=== PATIENT | female | born 1965 | race Caucasian/White ===

== ENCOUNTER 2018-04-25 17:03 | Emergency (ER) | payer SELFPAY ==
--- NOTE | 2018-04-25 17:07 | EDM.PDOC ---
ED HPI GENERAL MEDICAL PROBLEM - General Chief Complaint: Respiratory Problem Stated Complaint: BREATHING PROBLEMS Time Seen by Provider: 04/25/18 17:05 Source of Information: Reports: Patient History Limitations: Reports: No Limitations - History of Present Illness INITIAL COMMENTS - FREE TEXT/NARRATIVE: HISTORY AND PHYSICAL: History of present illness: Patient is a 52-year-old female who presents to the emergency room with complaints of cough and shortness of breath over the 6-8 weeks. She states she does have a history of childhood asthma although still does use an inhaler as needed. She states she use this more frequently yesterday but has not had any improvement of her symptoms. She has been using [id number] cough and cold medications along with lozenges but has not had any relief. Patient is a daily smoker. She denies any fever, chills, chest pain, abdominal pain, nausea, vomiting, diarrhea or constipation. She has been eating and drinking appropriately. Review of systems: As per history of present illness and below otherwise all systems reviewed and negative. Past medical history: As per history of present illness and as reviewed below otherwise noncontributory. Surgical history: As per history of present illness and as reviewed below otherwise noncontributory. Social history: See social history for further information Family history: As per history of present illness and as reviewed below otherwise noncontributory. Physical exam: General: Well-developed and well-nourished 52-year-old female. Alert and oriented. Nontoxic appearing and in no acute distress. HEENT: Atraumatic, normocephalic, pupils equal and reactive bilaterally, negative for conjunctival pallor or scleral icterus, mucous membranes moist, TMs normal bilaterally, throat clear, neck supple, nontender, trachea midline. No drooling or trismus noted. No meningeal signs. No hot potato voice noted. Lungs: Clear to auscultation although slightly diminished on the right posterior side, breath sounds equal bilaterally, chest nontender. Dry nonproductive cough noted. Heart: S1S2, regular rate and rhythm without overt murmur Abdomen: Soft, nondistended, nontender. Negative for masses or hepatosplenomegaly. Negative for costovertebral tenderness. Pelvis: Stable nontender. Genitourinary: Deferred. Rectal: Deferred. Skin: Intact, warm, dry. No lesions or rashes noted. Extremities: Atraumatic, negative for cords or calf pain. Neurovascular unremarkable. Neuro: Awake, alert, oriented. Cranial nerves II through XII unremarkable. Cerebellum unremarkable. Motor and sensory unremarkable throughout. Exam nonfocal. Notes: Chest x-ray shows no acute findings. Due to the length of symptoms and her smoking use, I am going to treat her with a Z-Juanjo and Medrol Dosepak. Patient requests that her inhaler be refilled, we will do one refill on this. Encouraged her to establish care with a primary care provider for further evaluation and management of her respiratory symptoms. She voices understanding and is agreeable to plan of care. Denies any further questions or concerns at this time. Diagnostics: Chest x-ray Therapeutics: DuoNeb Prescription: Pro-air inhaler Zpack Medrol Dosepak Impression: Bronchitis Plan: 1. Please stop smoking. 2. Take your medications as directed. 3. Follow-up with your primary caregiver in the next 1-2 days. Return to the ED as needed and as discussed. Definitive disposition and diagnosis as appropriate pending reevaluation and review of above. chest upon breathing Pain Score (Numeric/FACES): 5 - Related Data Allergies Allergy/AdvReac Type Severity Reaction Status Date / Time hydromorphone [From Dilaudid] Allergy Cannot Verified 04/25/18 17:27 Remember Home Meds: Home Meds . [No Known Home Meds] 11/17/15 [History] Past Medical History Cardiovascular History: Reports: Other (See Below) Other Cardiovascular History: states she had a heart attack at age 32 Genitourinary History: Reports: None - Infectious Disease History Infectious Disease History: Reports: Chicken Pox, Mumps - Past Surgical History Female Surgical History: Reports: Other (See Below) Social & Family History - Family History Family Medical History: Noncontributory ED ROS GENERAL - Review of Systems Review Of Systems: ROS reveals no pertinent complaints other than HPI. ED EXAM, GENERAL - Physical Exam Exam: See Below Course - Vital Signs Last Recorded V/S: Last Vital Signs Temp 97.1 F 04/25/18 17:22 Pulse 89 04/25/18 17:22 Resp 18 04/25/18 17:22 BP 116/75 04/25/18 17:22 Pulse Ox 100 04/25/18 17:22 - Orders/Labs/Meds Orders: Active Orders 24 hr Category Date Time Status RT Aerosol Therapy [RC] ASDIRECTED Care 04/25/18 17:40 Active Chest 2V [CR] Stat Exams 04/25/18 17:40 Taken Meds: Medications Discontinued Medications Generic Name Dose Route Start Last Admin Trade Name Juan Luis PRN Reason Stop Dose Admin Albuterol/Ipratropium 3 ml 04/25/18 17:40 04/25/18 19:11 Duoneb 3.0-0.5 Mg/3 Ml NEB 04/25/18 17:41 3 ml ONETIME ONE Administration Departure - Departure Time of Disposition: 18:11 Disposition: Home, Self-Care 01 Clinical Impression: Bronchitis - Discharge Information Referrals: PCP,Unknown [Primary Care Provider] - Forms: ED Department Discharge Additional Instructions: The following information is given to patients seen in the emergency department who are being discharged to home. This information is to outline your options for follow-up care. We provide all patients seen in our emergency department with a follow-up referral. The need for follow-up, as well as the timing and circumstances, are variable depending upon the specifics of your emergency department visit. If you don't have a primary care physician on staff, we will provide you with a referral. We always advise you to contact your personal physician following an emergency department visit to inform them of the circumstance of the visit and for follow-up with them and/or the need for any referrals to a consulting specialist. The emergency department will also refer you to a specialist when appropriate. This referral assures that you have the opportunity for follow-up care with a specialist. All of these measure are taken in an effort to provide you with optimal care, which includes your follow-up. Under all circumstances we always encourage you to contact your private physician who remains a resource for coordinating your care. When calling for follow-up care, please make the office aware that this follow-up is from your recent emergency room visit. If for any reason you are refused follow-up, please contact the [facility] Emergency [facility] at and asked to speak to the emergency department charge nurse. [facility] [address] [place] [id number] [facility] [address] [place] [address] 1. Please stop smoking. 2. Take your medications as directed. 3. Follow-up with your primary caregiver in the next 1-2 days. Return to the ED as needed and as discussed. - My Orders Last 24 Hours: My Active Orders 04/25/18 17:40 RT Aerosol Therapy [RC] ASDIRECTED Chest 2V [CR] Stat - Assessment/Plan Last 24 Hours: My Active Orders 04/25/18 17:40 RT Aerosol Therapy [RC] ASDIRECTED Chest 2V [CR] Stat
[2018-04-25 17:34] VITALS: BP 116/75
[2018-04-25] MEDS ORDERED: Albuterol/Ipratropium 3.0-0.5 MG/3 ML Neb Soln NEB ONE (17:40)
--- NOTE | 2018-04-25 19:30 | CR ---
INDICATION: Cough for 2 months TECHNIQUE: Chest 2 views. COMPARISON: None. FINDINGS: Cardiovascular and mediastinum: Heart size and vasculature are normal in caliber and appearance. Mediastinum is within normal limits. Lungs and pleural spaces: Lungs are clear. No sign of infiltrate or mass. No sign of pleural effusion. No pneumothorax. Bones and soft tissues: No significant findings. IMPRESSION: No sign of acute disease. Dictated by Renate Weston MD @ Apr 25 2018 7:30PM Signed by Dr. Renate Weston @ Apr 25 2018 7:30PM
== END 2018-04-25 19:37 | disposition home or self-care (01) ==
LOC: MW.ED 17:03
DX: J40 Bronchitis, not specified as acute or chronic (principal); F17.210 Nicotine dependence, cigarettes, uncomplicated; Z88.8 Allergy status to other drugs, medicaments and biological substances
CPT/HCPCS: 71046; 71046-26; 94640; 99285-25; J7620-GY

== ENCOUNTER 2018-07-24 19:16 | Emergency (ER) | payer SELFPAY ==
[2018-07-24] MEDS ORDERED: Ketorolac 60 MG/2 ML SDV IM ONE (19:23)
[2018-07-24] MEDS ORDERED: Bacitracin Oint 1 GM U/D Packet TOP ONE (19:23)
--- NOTE | 2018-07-24 19:23 | EDM.PDOC ---
ED HPI GENERAL MEDICAL PROBLEM - General Chief Complaint: Skin Complaint Stated Complaint: PAIN WHERE THEY REMOVED MOLE Time Seen by Provider: 07/24/18 19:19 Source of Information: Reports: Patient History Limitations: Reports: No Limitations - History of Present Illness INITIAL COMMENTS - FREE TEXT/NARRATIVE: HISTORY AND PHYSICAL: History of present illness: Patient is a 52-year-old female who presents to the emergency room today with complaints of pain at a mall extraction site. She states she went to the walk- in clinic this afternoon to have a mole removed as it was rubbing along her bra line and had been bothersome. She also has a cellulitis to the right forearm. Patient states she is not here for the cellulitis, as she is already on antibiotics for this. After her appointment, she picked up her prescription for Bactrim DS. States she started to have pain at the mole removal site (right lateral chest wall). She returned to the walk-in clinic and he further prescribed some Slinger 5/325. She states she has taken 2 tablets of this and has had no relief. States, "I don't know if he cut a nerve or something". Patient denies any fever, chills, headache, change in vision, syncope or near syncope. Denies any chest pain, back pain, shortness of breath or cough. Denies any abdominal pain, nausea, vomiting, diarrhea, constipation or dysuria. Has not noted any blood in urine or stool. Patient has been eating and drinking appropriately. Review of systems: As per history of present illness and below otherwise all systems reviewed and negative. Past medical history: As per history of present illness and as reviewed below otherwise noncontributory. Surgical history: As per history of present illness and as reviewed below otherwise noncontributory. Social history: See social history for further information Family history: As per history of present illness and as reviewed below otherwise noncontributory. Physical exam: General: Well-developed and well-nourished 52-year-old female. Alert and oriented. Nontoxic appearing and in no acute distress. HEENT: Atraumatic, normocephalic, pupils equal and reactive bilaterally, negative for conjunctival pallor or scleral icterus, mucous membranes moist, trachea midline. No drooling or trismus noted. No meningeal signs. No hot potato voice noted. Lungs: Clear to auscultation, breath sounds equal bilaterally, chest nontender. Heart: S1S2, regular rate and rhythm without overt murmur Abdomen: Soft, nondistended, nontender. Skin: Patient does have a small circular area to the right lateral chest wall which she had a mole removed. Patient previously had a nonstick dressing over the site. No surrounding erythema, site is superficial. 3 mm in diameter. Patient reports is painful to palpation. Secondarily she has a localized cellulitis to the right forearm. This is non-circumferential. Nonfluctuant and nonindurated. This is approximately the size of the palmar surface. Extremities: Atraumatic, moves all extremities per self without difficulty or deficits, negative for cords or calf pain. Neurovascular unremarkable. Neuro: Awake, alert, oriented. Cranial nerves II through XII unremarkable. Cerebellum unremarkable. Motor and sensory unremarkable throughout. Exam nonfocal. Notes: Patient's vital signs are stable. Her lung sounds are clear in all lung moreno. No evidence of a shingles rash. The mole removal site appears to be within normal limits. She states it is tender with palpation. She already has a prescription for Slinger which she took one tablet upon getting the prescription filled and then another tablet one hour later. Chest x-ray shows no acute findings. Bacitracin dressing applied over the mole extraction site. Did talk with the patient about her previous cellulitis diagnoses and what to continue to monitor for as she starts oral antibiotic therapy. Encouraged her to take 2 tablets of her Slinger every 4-6 hours as needed. Supportive care measures were reviewed and discussed. Voices understanding and is agreeable to plan of care. Denies any further questions or concerns at this time. Diagnostics: CXR Therapeutics: Bacitracin Non-stick dressing Prescription: None Impression: Chest wall pain Cellulitis Plan: 1. Keep the mole removal site clean and dry. Continue to monitor for signs of improvement. 2. Start your antibiotics for the forearm cellulitis as directed. Keep that clean and dry. Continue to monitor for signs of improvement. If signs worsen or new symptoms develop; return to your primary care provider or the ED. 3. Slinger as prescribed by your primary care provider. You may take 1-2 tabs as needed and as directed. Do not drive while taking this medication as it may cause drowsiness. 4. Follow-up with your primary care provider is as discussed. Return to the ED as needed and as discussed. Definitive disposition and diagnosis as appropriate pending reevaluation and review of above. 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 ED EXAM, SKIN/RASH Exam: See Below (See dictation) Course - Vital Signs Last Recorded V/S: Last Vital Signs Temp 97.3 F 07/24/18 19:21 Pulse 92 07/24/18 19:21 Resp 22 H 07/24/18 19:21 BP 149/102 H 07/24/18 19:21 Pulse Ox 98 07/24/18 19:21 - Orders/Labs/Meds Orders: Active Orders 24 hr Category Date Time Status Chest 2V [CR] Stat Exams 07/24/18 19:23 Taken Meds: Medications Discontinued Medications Generic Name Dose Route Start Last Admin Trade Name Freq PRN Reason Stop Dose Admin Bacitracin 1 dose 07/24/18 19:23 07/24/18 19:29 Bacitracin Oint 1 Gm TOP 07/24/18 19:24 1 dose ONETIME ONE Administration Ketorolac Tromethamine 60 mg 07/24/18 19:23 07/24/18 19:29 Toradol IM 07/24/18 19:24 60 mg ONETIME ONE Administration Departure - Departure Time of Disposition: 19:32 Disposition: Home, Self-Care 01 Clinical Impression: Chest wall pain Cellulitis Qualifiers: Site of cellulitis: extremity Site of cellulitis of extremity: upper extremity Laterality: right Qualified Code(s): L03.113 - Cellulitis of right upper limb - Discharge Information Forms: ED Department Discharge - My Orders Last 24 Hours: My Active Orders 07/24/18 19:23 Chest 2V [CR] Stat - Assessment/Plan Last 24 Hours: My Active Orders 07/24/18 19:23 Chest 2V [CR] Stat
[2018-07-24 19:25] VITALS: BP 149/102
--- NOTE | 2018-07-24 20:02 | CR ---
INDICATION: S/p small bobby section from the back today. Now with shortness of breath. COMPARISON: 04/25/2018 FINDINGS: PA and lateral views of the chest were obtained. The lungs remain clear. No focal or diffuse infiltrates are present. There is no sign of pneumothorax. The heart remains normal in size. The mediastinum is normal in appearance. Again seen is a minimal pectus excavatum deformity. The osseous structures are otherwise normal in appearance for the patient`s age. IMPRESSION: Normal chest two views. Dictated by Magdaleno Andrew MD @ Jul 24 2018 7:59PM Signed by Dr. Magdaleno Andrew @ Jul 24 2018 8:01PM
== END 2018-07-24 20:23 | disposition home or self-care (01) ==
LOC: MW.ED 19:16
DX: L03.113 Cellulitis of right upper limb (principal); R07.89 Other chest pain; Z88.6 Allergy status to analgesic agent; Z79.899 Other long term (current) drug therapy; Z98.890 Other specified postprocedural states
CPT/HCPCS: 71046; 96372; 99283; J1885

== ENCOUNTER 2018-07-26 00:02 | Observation (INO) | payer SELFPAY ==
[2018-07-26] MEDS ORDERED: Morphine 2 MG/ML Syringe IVPUSH ONE (00:26)
[2018-07-26] MEDS ORDERED: Ondansetron 4 MG/2 ML SDV IVPUSH ONE (00:26)
[2018-07-26] MEDS ORDERED: Sodium Chloride 0.9% 1,000 ML IV ONE (00:26)
[2018-07-26] MEDS ORDERED: Ketorolac 30 MG/ML SDV IVPUSH ONE (00:45)
[2018-07-26 01:09] LABS: CHLORIDE,CL 104 mmol/L (98-107); SODIUM,NA 141 mmol/L (136-145)
--- NOTE | 2018-07-26 01:19 | US ---
INDICATION: Right back abdominal pain TECHNIQUE: Ultrasound abdomen limited. Sonographic images of the right upper quadrant were obtained using flynn-scale and color Doppler images. COMPARISON: None FINDINGS: Liver: The liver parenchyma is normal in echotexture. Gallbladder: The neck of the gallbladder is not well demonstrated. The gallbladder wall is normal in appearance. No pericholecystic fluid is present. No sonographic Lowell sign is present. Common bile duct: 3 mm. No intrahepatic biliary ductal dilatation seen. Pancreas: The visualized portions of the pancreatic head and body are normal in appearance. Right Kidney: 9.9 cm. No hydronephrosis or ureterectasis is seen. Vascular: Proximal abdominal aorta and IVC are normal in caliber. The visualized portal vein is patent with normal anterograde flow. IMPRESSION: 1. The right upper quadrant is unremarkable in appearance. Dictated by Ranjan Batista MD @ 07/26/2018 1:18:13 AM Dictated by: Ranjan Batista MD @ 07/26/2018 01:18:19 (Electronically Signed)
[2018-07-26] MEDS ORDERED: Morphine 4 MG/ML Syringe IVPUSH ONE (01:55)
--- NOTE | 2018-07-26 02:16 | EDM.PDOC ---
ED HPI GENERAL MEDICAL PROBLEM - General Chief Complaint: General Stated Complaint: PT IS IN PAIN Time Seen by Provider: 07/26/18 02:16 Source of Information: Reports: Patient - History of Present Illness INITIAL COMMENTS - FREE TEXT/NARRATIVE: HISTORY AND PHYSICAL: History of present illness: [Patient presents with complaint of pain 10 out of 10 She attributes pain to a lesion removal on her right posterior chest wall/ [facility] she describes what sounds to be a hemangioma that was removed and then cautery performed, she felt well after the lesion was removed however went to the grocery store about 30 minutes later and developed significant pain, she returned fair light and was placed on hydrocodone and Bactrim. She presents tonight with the 10 out of 10 pain she is tender with light touch around the lesion however she is also tender on paraspinous muscles of lumbar spine and tender in the right upper quadrant of her abdomen on deep palpation there is no guarding or rebound no lower quadrant tenderness no fever nausea vomiting chills sweats She states she has had similar symptoms off and on over the last couple of years but pain would resolve within the same day Patient also is recently been seen for a puncture wound on her right forearm which has developed a cellulitis, the Bactrim was originally prescribed for the cellulitis ] Review of systems: As per history of present illness and below otherwise all systems reviewed and negative. Past medical history: As per history of present illness and as reviewed below otherwise noncontributory. Surgical history: As per history of present illness and as reviewed below otherwise noncontributory. Social history: No reported history of drug or alcohol abuse. Family history: As per history of present illness and as reviewed below otherwise noncontributory. Physical exam: HEENT: Atraumatic, normocephalic, pupils reactive, negative for conjunctival pallor or scleral icterus, mucous membranes moist, throat clear, neck supple, nontender, trachea midline. Lungs: Clear to auscultation, breath sounds equal bilaterally, chest nontender. Heart: S1S2, regular, negative for clicks, rubs, or JVD. Abdomen: Soft, nondistended, tender in the right upper quadrant or guarding or rebound. Negative for masses or hepatosplenomegaly. Negative for costovertebral tenderness. Pelvis: Stable nontender. Genitourinary: Deferred. Rectal: Deferred. Extremities: Atraumatic, negative for cords or calf pain. Neurovascular unremarkable. Neuro: Awake, alert, oriented. Cranial nerves II through XII unremarkable. Cerebellum unremarkable. Motor and sensory unremarkable throughout. Exam nonfocal. Skin cellulitis right forearm 2" x 3" fairly well demarcated lesion, lesion consistent with mole removal/punch biopsy right axilla/posterior chest wall with surrounding area tenderness no redness or warmth lesion is dry cauterized no drainage or exudates for culture Diagnostics: [CBC CMP UA troponin lipase hCG 1 pelvis with contrast Right upper quadrant ultrasound ] Therapeutics: [ normal saline ms 2 mg IV, followed by 4 mg IV Toradol 30 mg IV Zofran Bactroban ] Impression: [ intractable pain etiology uncertain Suspicious for biliary colic , may consider HIDA scan Cellulitis right forearm Definitive disposition and diagnosis as appropriate pending reevaluation and review of above. Right Upper Back Pain Score (Numeric/FACES): 10 - Related Data Allergies Allergy/AdvReac Type Severity Reaction Status Date / Time hydromorphone [From Dilaudid] Allergy Change Verified 07/26/18 00:18 Mental Status Home Meds: Home Meds Sulfamethoxazole/Trimethoprim [Bactrim Ds Tablet] 1 each PO BID 07/24/18 [ History] Diclofenac Sodium [Voltaren] 1 tab PO TID 07/26/18 [History] Past Medical History HEENT History: Reports: None Cardiovascular History: Reports: Other (See Below) Other Cardiovascular History: states she had a heart attack at age 32 Respiratory History: Reports: None Gastrointestinal History: Reports: None Genitourinary History: Reports: None 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: Musculoskeletal History: Reports: None Neurological History: Reports: None Psychiatric History: Reports: Depression Endocrine/Metabolic History: Reports: None Hematologic History: Reports: None Immunologic History: Reports: None Oncologic (Cancer) History: Reports: None Dermatologic History: Reports: Cellulitis - Infectious Disease History Infectious Disease History: Reports: None - Past Surgical History Head Surgeries/Procedures: Reports: None Female Surgical History: Reports: Other (See Below) Social & Family History - Family History Family Medical History: Noncontributory - Tobacco Use Smoking Status *Q: Current Every Day Smoker Years of Tobacco use: 25 Packs/Tins Daily: 0.5 - Caffeine Use Caffeine Use: Reports: Coffee - Recreational Drug Use Recreational Drug Use: No ED ROS GENERAL - Review of Systems Review Of Systems: See Below ED EXAM, GENERAL - Physical Exam Exam: See Below Course - Vital Signs Last Recorded V/S: Last Vital Signs Temp 96.9 F 07/26/18 00:11 Pulse 74 07/26/18 02:32 Resp 16 07/26/18 02:32 BP 132/70 07/26/18 02:32 Pulse Ox 95 07/26/18 02:32 - Orders/Labs/Meds Orders: Active Orders 24 hr Category Date Time Status CULTURE BLOOD [BC] Stat Lab 07/26/18 00:35 Received CULTURE BLOOD [BC] Stat Lab 07/26/18 01:20 Received Mupirocin Oint [Bactroban Oint] Med 07/26/18 03:00 Once 1 gm TOP ONETIME ONE Blood Culture x2 Reflex Set [OM.PC] Stat Oth 07/26/18 00:26 Ordered Medication Orders Mupirocin (Bactroban Oint) 1 gm TOP ONETIME ONE Stop: 07/26/18 03:01 Labs: Laboratory Tests 07/26/18 07/26/18 07/26/18 Range/Units 00:35 00:35 01:30 WBC 9.72 (4.0-11.0) K/uL RBC 4.07 L (4.30-5.90) M/uL Hgb 13.3 (12.0-16.0) g/dL Hct 39.4 (36.0-46.0) % MCV 96.8 (80.0-98.0) fL MCH 32.7 H (27.0-32.0) pg MCHC 33.8 (31.0-37.0) g/dL RDW Std Deviation 42.9 (28.0-62.0) fl RDW Coeff of Lorie 13 (11.0-15.0) % Plt Count 259 (150-400) K/uL MPV 10.00 (7.40-12.00) fL Neut % (Auto) 57.9 (48.0-80.0) % Lymph % (Auto) 29.5 (16.0-40.0) % [place] % (Auto) 7.5 (0.0-15.0) % Eos % (Auto) 4.9 (0.0-7.0) % Baso % (Auto) 0.2 (0.0-1.5) % Neut # (Auto) 5.6 (1.4-5.7) K/uL Lymph # (Auto) 2.9 H (0.6-2.4) K/uL [place] # (Auto) 0.7 (0.0-0.8) K/uL Eos # (Auto) 0.5 (0.0-0.7) K/uL Baso # (Auto) 0.0 (0.0-0.1) K/uL Sodium 141 (136-145) mmol/L Potassium 4.0 (3.5-5.1) mmol/L Chloride 104 (98-107) mmol/L Carbon Dioxide 27.0 (21.0-32.0) mmol/L BUN 11 (7.0-18.0) mg/dL Creatinine 0.7 (0.6-1.0) mg/dL Est Cr Clr Drug Dosing 69.06 mL/min Estimated GFR (MDRD) > 60.0 ml/min Glucose 103 (74-106) mg/dL Calcium 8.7 (8.5-10.1) mg/dL Total Bilirubin 0.3 (0.2-1.0) mg/dL AST 16 (15-37) IU/L ALT 21 (14-63) IU/L Alkaline Phosphatase 64 (46-116) U/L Troponin I < 0.050 (0.000-0.056) ng/mL Total Protein 6.8 (6.4-8.2) g/dL Albumin 3.8 (3.4-5.0) g/dL Globulin 3.0 (2.6-4.0) g/dL Albumin/Globulin Ratio 1.3 (0.9-1.6) Lipase 238 (73-393) U/L Urine Color YELLOW Urine Appearance CLEAR Urine pH 5.5 (5.0-8.0) Ur Specific [place] <= 1.005 (1.001-1.035) Urine Protein NEGATIVE (NEGATIVE) mg/dL Urine Glucose (UA) NEGATIVE (NEGATIVE) mg/dL Urine Ketones NEGATIVE (NEGATIVE) mg/dL Urine Occult Blood NEGATIVE (NEGATIVE) Urine Nitrite NEGATIVE (NEGATIVE) Urine Bilirubin NEGATIVE (NEGATIVE) Urine Urobilinogen 0.2 (<2.0) EU/dL Ur Leukocyte Esterase NEGATIVE (NEGATIVE) Meds: Medications Generic Name Dose Route Start Last Admin Trade Name Juan Lusi PRN Reason Stop Dose Admin Mupirocin 1 gm 07/26/18 03:00 Bactroban Oint TOP 07/26/18 03:01 ONETIME ONE Discontinued Medications Generic Name Dose Route Start Last Admin Trade Name Juan Luis PRN Reason Stop Dose Admin Sodium Chloride 1,000 mls @ 999 mls/hr 07/26/18 00:26 07/26/18 00:40 Normal Saline IV 07/26/18 01:26 999 mls/hr STAT ONE Administration Iopamidol 90 ml 07/26/18 02:27 07/26/18 02:28 Isovue Multipack-370 (76%) IVPUSH 07/26/18 02:28 90 ml ONETIME STA Administration Ketorolac Tromethamine 30 mg 07/26/18 00:45 07/26/18 01:12 Toradol IVPUSH 07/26/18 00:46 30 mg ONETIME ONE Administration Morphine Sulfate 2 mg 07/26/18 00:26 07/26/18 00:41 Morphine IVPUSH 07/26/18 00:27 2 mg ONETIME ONE Administration Morphine Sulfate 4 mg 07/26/18 01:55 07/26/18 02:00 Morphine IVPUSH 07/26/18 01:56 4 mg ONETIME ONE Administration Ondansetron HCl 8 mg 07/26/18 00:26 07/26/18 00:40 Zofran IVPUSH 07/26/18 00:27 8 mg ONETIME ONE Administration Departure - Departure Time of Disposition: 03:08 Disposition: Refer to Observation Condition: Fair Clinical Impression: Intractable pain Cellulitis Qualifiers: Site of cellulitis: extremity Site of cellulitis of extremity: upper extremity Laterality: right Qualified Code(s): L03.113 - Cellulitis of right upper limb - Discharge Information Referrals: PCP,None [Primary Care Provider] - Forms: ED Department Discharge - My Orders Last 24 Hours: My Active Orders 07/26/18 00:26 Blood Culture x2 Reflex Set [OM.PC] Stat 07/26/18 00:35 CULTURE BLOOD [BC] Stat 07/26/18 01:20 CULTURE BLOOD [BC] Stat 07/26/18 03:00 Mupirocin Oint [Bactroban Oint] 1 gm TOP ONETIME ONE - Assessment/Plan Last 24 Hours: My Active Orders 07/26/18 00:26 Blood Culture x2 Reflex Set [OM.PC] Stat 07/26/18 00:35 CULTURE BLOOD [BC] Stat 07/26/18 01:20 CULTURE BLOOD [BC] Stat 07/26/18 03:00 Mupirocin Oint [Bactroban Oint] 1 gm TOP ONETIME ONE
[2018-07-26] MEDS ORDERED: Iopamidol 755 MG/ML 500 ML Multipack Bottle IVPUSH STA (02:27)
--- NOTE | 2018-07-26 02:37 | CT ---
INDICATION: Abdominal pain, extreme back pain, mole removed from back recently TECHNIQUE: CT Abdomen and pelvis with i.v. contrast. Coronal and sagittal reformats were obtained. CONTRAST: 100 mL Isovue 370 COMPARISON: Ultrasound today FINDINGS: Mild image quality degradation noted due to beam hardening artifacts from scanning with the arms by the patient`s sides. Lower chest: Mild left basilar atelectasis is noted. Liver: Unremarkable. Spleen: Unremarkable. Pancreas: Unremarkable. Gallbladder: Unremarkable. Kidney: Unremarkable. No kidney or ureteral stones or obstruction seen. Adrenal: Unremarkable. Bowel: Unremarkable. The appendix is not visualized and likely surgically absent. Vascular: Unremarkable. Lymph: Unremarkable. Peritoneum: Unremarkable. No pneumoperitoneum is seen. No significant ascites is noted. Pelvis: The patient is status post prior hysterectomy. Soft tissue: Unremarkable. Bone: Small calcified and chronic appearing broad-based disc protrusion is seen at L5-S1. IMPRESSION: 1. Unremarkable with no CT correlate for the patient`s symptoms seen. Dictated by Ranjan Batista MD @ 07/26/2018 2:36:03 AM Please note that all CT scans at this facility use dose modulation, iterative reconstruction, and/or weight-based dosing when appropriate to reduce radiation dose to as low as reasonably achievable. Dictated by: Ranjan Btaista MD @ 07/26/2018 02:36:08 (Electronically Signed)
[2018-07-26] MEDS ORDERED: Mupirocin Oint 22 GM Tube TOP ONE (03:00)
[2018-07-26] MEDS ORDERED: Sodium Chloride 0.9% 1,000 ML IV SCH (03:15)
[2018-07-26] MEDS ORDERED: diphenhydrAMINE 50 MG Cap PO ONE (04:20)
[2018-07-26] MEDS ORDERED: Acetaminophen 325 MG Tab PO PRN (04:21)
[2018-07-26] MEDS ORDERED: oxyCODONE 5 MG Tab PO PRN (04:21)
[2018-07-26] MEDS ORDERED: Morphine 2 MG/ML Syringe IVPUSH PRN (04:22)
[2018-07-26] MEDS: Nicotine 14 MG/24 Hr Patch TRDERM SCH ×2 (04:31→09:26)
[2018-07-26] MEDS ORDERED: Ketorolac 30 MG/ML SDV IV PRN (07:16)
[2018-07-26] MEDS ORDERED: Temazepam 15 MG Cap PO PRN (07:16)
[2018-07-26] MEDS ORDERED: Enoxaparin 40 MG/0.4 ML Syringe SUBCUT SCH (07:30)
[2018-07-26] MEDS ORDERED: cefTRIAXone 1 GM in Premix Bag 1 BAG IV SCH (08:45)
[2018-07-26] MEDS ORDERED: TRIMETHOPRIM PO SCH (09:00)
[2018-07-26] MEDS ORDERED: Diphtheria,Pertussis(Acell),Tetanus Vaccine 0.5 ML Syringe IM ONE (09:00)
[2018-07-26] MEDS ORDERED: SULFAMETHOXAZOLE PO SCH (09:00)
--- NOTE | 2018-07-26 10:31 | PCM.HP ---
<Addy Hawkins - Last Filed: 07/26/18 10:24> H&P History of Present Illness - General Date of Service: 07/26/18 Admit Problem/Dx: Admission Diagnosis/Problem Admission Diagnosis/Problem Abdominal pain History Limitations: Reports: No Limitations - History of Present Illness Initial Comments - Free Text/Narative: 52F previously healthy presented to the ER with a chief complaint of point tenderness on her right side of back in thoracic region with abdominal discomfort also. She states that she had a hemangioma removed at outside clinic earlier in the day prior to presentation and about 1hr later started to feel significant pain in that region. ER physician was considered for an alternative pathology for her pain complaints. However, CT abd/pelvis and US of the RUQ are unremarkable. Also, patient states that about 1 month ago she scraped her R forearm on a heavy tire in her backyard and has been dealing with a rash/ infection locally on her forearm. She says its been draining a clear fluid. No nausea or vomiting, no fever. Tetanus is not UTD. Right Upper Back Pain Score (Numeric/FACES): 10 - Related Data Allergies/Adverse Reactions: Allergies Allergy/AdvReac Type Severity Reaction Status Date / Time hydromorphone [From Dilaudid] Allergy Change Verified 07/26/18 00:18 Mental Status Home Medications: Home Meds Sulfamethoxazole/Trimethoprim [Bactrim Ds Tablet] 1 each PO BID 07/24/18 [ History] Cephalexin [Keflex] 500 mg PO QID 5 Days #20 capsule 07/26/18 [Rx] Diclofenac Sodium [Voltaren] 1 tab PO TID 07/26/18 [History] Doxycycline [Vibramycin] 100 mg PO Q12H 7 Days #14 tab 07/26/18 [Rx] Morphine 15 mg PO Q4H PRN #12 tab 07/26/18 [Rx] Past Medical History HEENT History: Reports: None Cardiovascular History: Reports: Other (See Below) Other Cardiovascular History: states she had a heart attack at age 32 Respiratory History: Reports: None Gastrointestinal History: Reports: None Genitourinary History: Reports: None [employer] History: Reports: Musculoskeletal History: Reports: None Neurological History: Reports: None Psychiatric History: Reports: Depression Endocrine/Metabolic History: Reports: None Hematologic History: Reports: None Immunologic History: Reports: None Oncologic (Cancer) History: Reports: None Dermatologic History: Reports: Cellulitis - Infectious Disease History Infectious Disease History: Reports: None - Past Surgical History Head Surgeries/Procedures: Reports: None Social & Family History - Family History Family Medical History: Noncontributory - Tobacco Use Smoking Status *Q: Current Every Day Smoker Years of Tobacco use: 25 Packs/Tins Daily: 0.5 Used Tobacco, but Quit: No Second Hand Smoke Exposure: No - Caffeine Use Caffeine Use: Reports: Coffee - Recreational Drug Use Recreational Drug Use: No H&P Review of Systems - Review of Systems: Review Of Systems: See Below General: Reports: No Symptoms HEENT: Reports: No Symptoms Pulmonary: Reports: No Symptoms Cardiovascular: Reports: No Symptoms Gastrointestinal: Reports: No Symptoms Skin: Reports: Other (see hpi) Exam - Exam Exam: See Below - Vital Signs Vital Signs: Last Vital Signs Temp 36 C 07/26/18 07:10 Pulse 69 07/26/18 07:10 Resp 16 07/26/18 07:10 BP 124/74 07/26/18 07:10 Pulse Ox 97 07/26/18 07:16 Weight: 47.083 kg - Exam General: Alert, Oriented, 4 HEENT: PERRLA, Hearing Intact, Mucosa Moist & [place], Nares Patent, Normal Nasal Septum, Posterior Pharynx Clear, Conjunctiva Clear, EOMI, EACs Clear, TMs Clear Neck: Supple, Trachea Midline, 2 Lungs: Clear to Auscultation, Normal Respiratory Effort Cardiovascular: Regular Rate, Regular Rhythm GI/Abdominal Exam: Other (RUQ tenderness to palpation, no rebound) Back Exam: Normal Inspection, Full Range of Motion, Other (R thoracic region point tenderness over site of hemangioma removal. Lesion appears clean without drainage/induration/warmth/erythema) Extremities: Normal Inspection, Normal Range of Motion, Non-Tender, No Pedal Edema, Normal Capillary Refill - Patient Data Lab Results Last 24 hrs: Laboratory Results - last 24 hr 07/26/18 07/26/18 07/26/18 Range/Units 00:35 00:35 01:30 WBC 9.72 (4.0-11.0) K/uL RBC 4.07 L (4.30-5.90) M/uL Hgb 13.3 (12.0-16.0) g/dL Hct 39.4 (36.0-46.0) % MCV 96.8 (80.0-98.0) fL MCH 32.7 H (27.0-32.0) pg MCHC 33.8 (31.0-37.0) g/dL RDW Std Deviation 42.9 (28.0-62.0) fl RDW Coeff of Lorie 13 (11.0-15.0) % Plt Count 259 (150-400) K/uL MPV 10.00 (7.40-12.00) fL Neut % (Auto) 57.9 (48.0-80.0) % Lymph % (Auto) 29.5 (16.0-40.0) % Stewart % (Auto) 7.5 (0.0-15.0) % Eos % (Auto) 4.9 (0.0-7.0) % Baso % (Auto) 0.2 (0.0-1.5) % Neut # (Auto) 5.6 (1.4-5.7) K/uL Lymph # (Auto) 2.9 H (0.6-2.4) K/uL Stewart # (Auto) 0.7 (0.0-0.8) K/uL Eos # (Auto) 0.5 (0.0-0.7) K/uL Baso # (Auto) 0.0 (0.0-0.1) K/uL Sodium 141 (136-145) mmol/L Potassium 4.0 (3.5-5.1) mmol/L Chloride 104 (98-107) mmol/L Carbon Dioxide 27.0 (21.0-32.0) mmol/L BUN 11 (7.0-18.0) mg/dL Creatinine 0.7 (0.6-1.0) mg/dL Est Cr Clr Drug Dosing 69.06 mL/min Estimated GFR (MDRD) > 60.0 ml/min Glucose 103 (74-106) mg/dL Calcium 8.7 (8.5-10.1) mg/dL Total Bilirubin 0.3 (0.2-1.0) mg/dL AST 16 (15-37) IU/L ALT 21 (14-63) IU/L Alkaline Phosphatase 64 (46-116) U/L Troponin I < 0.050 (0.000-0.056) ng/mL Total Protein 6.8 (6.4-8.2) g/dL Albumin 3.8 (3.4-5.0) g/dL Globulin 3.0 (2.6-4.0) g/dL Albumin/Globulin Ratio 1.3 (0.9-1.6) Lipase 238 (73-393) U/L Urine Color YELLOW Urine Appearance CLEAR Urine pH 5.5 (5.0-8.0) Ur Specific Dexter <= 1.005 (1.001-1.035) Urine Protein NEGATIVE (NEGATIVE) mg/dL Urine Glucose (UA) NEGATIVE (NEGATIVE) mg/dL Urine Ketones NEGATIVE (NEGATIVE) mg/dL Urine Occult Blood NEGATIVE (NEGATIVE) Urine Nitrite NEGATIVE (NEGATIVE) Urine Bilirubin NEGATIVE (NEGATIVE) Urine Urobilinogen 0.2 (<2.0) EU/dL Ur Leukocyte Esterase NEGATIVE (NEGATIVE) Result Diagrams: 07/26/18 00:35 07/26/18 00:35 Problem List Initiated/Reviewed/Updated: Yes Orders Last 24hrs: Active Orders 24 hr Category Date Time Status Admission Status [Patient Status] [ADT] Stat ADT 07/26/18 03:13 Active Oxygen Therapy [RC] PRN Care 07/26/18 07:16 Active Ready for Discharge [RC] PER UNIT ROUTINE Care 07/26/18 08:59 Active Up ad Magalys [RC] ASDIRECTED Care 07/26/18 07:16 Active VTE/DVT Education [RC] PER UNIT ROUTINE Care 07/26/18 07:16 Active Vaccines to be Administered [RC] PER UNIT ROUTINE Care 07/26/18 08:32 Active Vital Signs [RC] Q4H Care 07/26/18 07:16 Active Regular Diet [DIET] Diet 07/26/18 Breakfast Active HIDA with EF [Cholescintigraphy w Pharm Int] [NM] Stat Exams 07/26/18 08:42 Ordered CULTURE BLOOD [BC] Stat Lab 07/26/18 00:35 Received CULTURE BLOOD [BC] Stat Lab 07/26/18 01:20 Received Acetaminophen [Tylenol] Med 07/26/18 04:21 Active 650 mg PO Q4H PRN Enoxaparin [Lovenox] Med 07/26/18 07:30 Active 40 mg SUBCUT Q24H Ketorolac [Toradol] Med 07/26/18 07:16 Active 30 mg IV Q6H PRN Morphine Med 07/26/18 04:22 Active 2 mg IVPUSH Q4H PRN Nicotine [Habitrol] Med 07/26/18 04:30 Active 14 mg TRDERM DAILY Patient's Own Medication [Ptom] Med 07/26/18 09:00 Active 1 each PO BID Temazepam [Restoril] Med 07/26/18 07:16 Active 15 mg PO BEDTIME PRN cefTRIAXone [Rocephin in Dextrose,Iso-Osm 1 GM/50 ML] 1 Med 07/26/18 08:45 Active gm Premix Bag 1 bag IV Q24H oxyCODONE Med 07/26/18 04:21 Active 5 mg PO Q4H PRN Blood Culture x2 Reflex Set [OM.PC] Stat Oth 07/26/18 00:26 Ordered Resuscitation Status Routine Resus Stat 07/26/18 07:16 Ordered Medication Orders Acetaminophen (Tylenol) 650 mg PO Q4H PRN PRN Reason: Pain Enoxaparin Sodium (Lovenox) 40 mg SUBCUT Q24H [facility] Last Admin: 07/26/18 08:05 Dose: 40 mg Ceftriaxone Sodium/Dextrose 1 (gm/ Premix) 50 mls @ 100 mls/hr IV Q24H [facility] Last Admin: 07/26/18 09:10 Dose: 100 mls/hr Ketorolac Tromethamine (Toradol) 30 mg IV Q6H PRN PRN Reason: Pain (moderate 4-6) Last Admin: 07/26/18 09:21 Dose: 30 mg Morphine Sulfate (Morphine) 2 mg IVPUSH Q4H PRN PRN Reason: Pain Last Admin: 07/26/18 10:21 Dose: 2 mg Nicotine (Habitrol) 14 mg TRDERM DAILY [facility] Last Admin: 07/26/18 09:26 Dose: 14 mg Admin: 07/26/18 04:31 Dose: 14 mg Oxycodone HCl (Oxycodone) 5 mg PO Q4H PRN PRN Reason: Pain Last Admin: 07/26/18 09:03 Dose: 5 mg Sulfamethoxazole/ (Trimethoprim 800/160) 1 each PO BID [facility] Last Admin: 07/26/18 09:25 Dose: 1 each Temazepam (Restoril) 15 mg PO BEDTIME PRN PRN Reason: Sleep Assessment/Plan Comment:: Assessment: #1. R arm cellulitis #2. RUQ pain #3. History of recent hemangioma removal Plan: #1. Admit for observation #2. I spoke to general surgery who recommended that the patient get a HIDA scan for further evaluation of the galbladder for possible biliary dyskinesia. This will be done as an outpatient #3. Pain medications as ordered #4. IV rocephin for cellulitis #5. Tdap Discharge summary: Patient was discharged the same day with PO Keflex, doxycycline, PRN morphine. She is scheduled for a HIDA scan on Sunday07/29/2018. She was advised to be NPO 12 hrs prior to procedure and no pain medications 24hrs prior to procedure. Return precautions discussed. She will need a close follow up on her HIDA scan results and monitoring of her cellulitis. <Jordin Feliciano - Last Filed: 07/26/18 12:35> H&P History of Present Illness - General Admit Problem/Dx: Admission Diagnosis/Problem Admission Diagnosis/Problem Abdominal pain I have seen and examined to patient independently of front office medical assistant, Addy Hawkins MD. I have discussed the case for care of this patient with him. I have reviewed and approve of the plan of care as outlined by front office medical assistant. Exam - Vital Signs Vital Signs: Last Vital Signs Temp 36 C 07/26/18 07:10 Pulse 69 07/26/18 07:10 Resp 16 07/26/18 07:10 BP 124/74 07/26/18 07:10 Pulse Ox 97 07/26/18 07:16 - Patient Data Lab Results Last 24 hrs: Laboratory Results - last 24 hr 07/26/18 07/26/18 07/26/18 Range/Units 00:35 00:35 01:30 WBC 9.72 (4.0-11.0) K/uL RBC 4.07 L (4.30-5.90) M/uL Hgb 13.3 (12.0-16.0) g/dL Hct 39.4 (36.0-46.0) % MCV 96.8 (80.0-98.0) fL MCH 32.7 H (27.0-32.0) pg MCHC 33.8 (31.0-37.0) g/dL RDW Std Deviation 42.9 (28.0-62.0) fl RDW Coeff of Lorie 13 (11.0-15.0) % Plt Count 259 (150-400) K/uL MPV 10.00 (7.40-12.00) fL Neut % (Auto) 57.9 (48.0-80.0) % Lymph % (Auto) 29.5 (16.0-40.0) % Stewart % (Auto) 7.5 (0.0-15.0) % Eos % (Auto) 4.9 (0.0-7.0) % Baso % (Auto) 0.2 (0.0-1.5) % Neut # (Auto) 5.6 (1.4-5.7) K/uL Lymph # (Auto) 2.9 H (0.6-2.4) K/uL Stewart # (Auto) 0.7 (0.0-0.8) K/uL Eos # (Auto) 0.5 (0.0-0.7) K/uL Baso # (Auto) 0.0 (0.0-0.1) K/uL Sodium 141 (136-145) mmol/L Potassium 4.0 (3.5-5.1) mmol/L Chloride 104 (98-107) mmol/L Carbon Dioxide 27.0 (21.0-32.0) mmol/L BUN 11 (7.0-18.0) mg/dL Creatinine 0.7 (0.6-1.0) mg/dL Est Cr Clr Drug Dosing 69.06 mL/min Estimated GFR (MDRD) > 60.0 ml/min Glucose 103 (74-106) mg/dL Calcium 8.7 (8.5-10.1) mg/dL Total Bilirubin 0.3 (0.2-1.0) mg/dL AST 16 (15-37) IU/L ALT 21 (14-63) IU/L Alkaline Phosphatase 64 (46-116) U/L Troponin I < 0.050 (0.000-0.056) ng/mL Total Protein 6.8 (6.4-8.2) g/dL Albumin 3.8 (3.4-5.0) g/dL Globulin 3.0 (2.6-4.0) g/dL Albumin/Globulin Ratio 1.3 (0.9-1.6) Lipase 238 (73-393) U/L Urine Color YELLOW Urine Appearance CLEAR Urine pH 5.5 (5.0-8.0) Ur Specific Dexter <= 1.005 (1.001-1.035) Urine Protein NEGATIVE (NEGATIVE) mg/dL Urine Glucose (UA) NEGATIVE (NEGATIVE) mg/dL Urine Ketones NEGATIVE (NEGATIVE) mg/dL Urine Occult Blood NEGATIVE (NEGATIVE) Urine Nitrite NEGATIVE (NEGATIVE) Urine Bilirubin NEGATIVE (NEGATIVE) Urine Urobilinogen 0.2 (<2.0) EU/dL Ur Leukocyte Esterase NEGATIVE (NEGATIVE) Result Diagrams: 07/26/18 00:35 07/26/18 00:35 Orders Last 24hrs: Active Orders 24 hr Category Date Time Status Admission Status [Patient Status] [ADT] Stat ADT 07/26/18 03:13 Active Oxygen Therapy [RC] PRN Care 07/26/18 07:16 Active Ready for Discharge [RC] PER UNIT ROUTINE Care 07/26/18 08:59 Active Up ad Magalys [RC] ASDIRECTED Care 07/26/18 07:16 Active VTE/DVT Education [RC] PER UNIT ROUTINE Care 07/26/18 07:16 Active Vaccines to be Administered [RC] PER UNIT ROUTINE Care 07/26/18 08:32 Active Vital Signs [RC] Q4H Care 07/26/18 07:16 Active Regular Diet [DIET] Diet 07/26/18 Breakfast Active HIDA with EF [Cholescintigraphy w Pharm Int] [NM] Stat Exams 07/26/18 08:42 Ordered CULTURE BLOOD [BC] Stat Lab 07/26/18 00:35 Received CULTURE BLOOD [BC] Stat Lab 07/26/18 01:20 Received Acetaminophen [Tylenol] Med 07/26/18 04:21 Active 650 mg PO Q4H PRN Enoxaparin [Lovenox] Med 07/26/18 07:30 Active 40 mg SUBCUT Q24H Ketorolac [Toradol] Med 07/26/18 07:16 Active 30 mg IV Q6H PRN Morphine Med 07/26/18 04:22 Active 2 mg IVPUSH Q4H PRN Nicotine [Habitrol] Med 07/26/18 04:30 Active 14 mg TRDERM DAILY Patient's Own Medication [Ptom] Med 07/26/18 09:00 Active 1 each PO BID Temazepam [Restoril] Med 07/26/18 07:16 Active 15 mg PO BEDTIME PRN cefTRIAXone [Rocephin in Dextrose,Iso-Osm 1 GM/50 ML] 1 Med 07/26/18 08:45 Active gm Premix Bag 1 bag IV Q24H oxyCODONE Med 07/26/18 04:21 Active 5 mg PO Q4H PRN Blood Culture x2 Reflex Set [OM.PC] Stat Oth 07/26/18 00:26 Ordered Resuscitation Status Routine Resus Stat 07/26/18 07:16 Ordered Medication Orders Acetaminophen (Tylenol) 650 mg PO Q4H PRN PRN Reason: Pain Enoxaparin Sodium (Lovenox) 40 mg SUBCUT Q24H [facility] Last Admin: 07/26/18 08:05 Dose: 40 mg Ceftriaxone Sodium/Dextrose 1 (gm/ Premix) 50 mls @ 100 mls/hr IV Q24H [facility] Last Admin: 07/26/18 09:10 Dose: 100 mls/hr Ketorolac Tromethamine (Toradol) 30 mg IV Q6H PRN PRN Reason: Pain (moderate 4-6) Last Admin: 07/26/18 09:21 Dose: 30 mg Morphine Sulfate (Morphine) 2 mg IVPUSH Q4H PRN PRN Reason: Pain Last Admin: 07/26/18 10:21 Dose: 2 mg Nicotine (Habitrol) 14 mg TRDERM DAILY [facility] Last Admin: 07/26/18 09:26 Dose: 14 mg Admin: 07/26/18 04:31 Dose: 14 mg Oxycodone HCl (Oxycodone) 5 mg PO Q4H PRN PRN Reason: Pain Last Admin: 07/26/18 09:03 Dose: 5 mg Sulfamethoxazole/ (Trimethoprim 800/160) 1 each PO BID [facility] Last Admin: 07/26/18 09:25 Dose: 1 each Temazepam (Restoril) 15 mg PO BEDTIME PRN PRN Reason: Sleep
[2018-07-26 12:42] VITALS: BP 126/73
== END 2018-07-26 13:10 | disposition home or self-care (01) ==
LOC: MW.ED 00:02 → MW.MS 03:20
PROVIDERS: ADMIT Internal Medicine; ATTEND Internal Medicine
DX: R10.11 Right upper quadrant pain (principal); L03.113 Cellulitis of right upper limb; I25.2 Old myocardial infarction; F17.200 Nicotine dependence, unspecified, uncomplicated; Z88.5 Allergy status to narcotic agent
CPT/HCPCS: 36415; 74177; 76705; 80053; 81003; 83690; 84484; 85025; 87040; 90471; 90715; 96361; 96372; 96374; 96375; 96376; 99284; A4217; A9270; G0378; J0696; J1650; J1885; J2270; J2405; J7040; Q9967

== ENCOUNTER 2018-07-29 11:22 | Inpatient (IN) | payer MEDICAID ==
--- NOTE | 2018-07-29 13:46 | NM ---
EXAMINATION: Nuclear medicine hepatobiliary study (HIDA) with cholecystokinin (calculation of gallbladder ejection fraction for function). HISTORY: Otherwise specified disease of the gallbladder. PROCEDURE: Following intravenous administration of 4 mCi of technetium 99m Choletec, dynamic images were obtained up to one-hour post injection. This is followed by slow intravenous administration of 0.9 mcg of CCK and additional dynamic images were obtained. Gallbladder ejection fraction is calculated. FINDINGS: The initial dynamic images demonstrates clearance of the tracer from the blood pool with the prompt tracer uptake by the liver. By 30 minutes tracer activity is noted in the gallbladder. The post CCK images demonstrates suboptimal contraction of the gallbladder with ejection fraction of 25 percent (normal is equal or more than 35%). Tracer activity is noted in the small intestine following CCK administration. IMPRESSION: 1. Patent cystic and common bile ducts. Normal liver function. 2. Abnormal gallbladder ejection fraction following CCK administration (25%; normal equal or more than 35%). This suggests either biliary dyskinesia or motor dysfunction of the gallbladder.
[2018-07-30] MEDS ORDERED: Nicotine 14 MG/24 Hr Patch TRDERM SCH (15:30)
[2018-07-30 15:36] LABS: CHLORIDE,CL 102 mmol/L (98-107); SODIUM,NA 139 mmol/L (136-145)
[2018-07-30] MEDS ORDERED: Iopamidol 755 MG/ML 500 ML Multipack Bottle IVPUSH STA (16:11)
--- NOTE | 2018-07-30 16:20 | CR ---
EXAMINATION: Two-view chest (PA and Lateral views). HISTORY: Shortness of breath. FINDINGS: The trachea is midline. The cardiomediastinal silhouette is within normal limits. No pulmonary infiltrates, effusions or pneumothorax. Osseous structures appear unremarkable. IMPRESSION: No acute cardiopulmonary process.
--- NOTE | 2018-07-30 16:22 | CT ---
CT of the abdomen and pelvis with contrast. HISTORY: Tenderness TECHNIQUE: Axial CT images were obtained of the abdomen and pelvis following administration of 55 mL of Isovue-370 in the left antecubital fossa without complication. Coronal and sagittal reconstructions obtained. FINDINGS: The lung bases are clear, no pleural effusion. The liver, spleen, adrenal glands, and pancreas appear normal. There is pericholecystic fluid and stranding noted. There is no bulky retroperitoneal lymphadenopathy or abdominal ascites. The kidneys enhance and function symmetrically without evidence of obstructive uropathy. The large and small bowel are normal in caliber without evidence of obstruction. No focal pericolonic inflammation or stranding. Scattered diverticula. No pelvic lymphadenopathy or significant free pelvic fluid. The urinary bladder is normal. No suspicious osseous abnormalities identified. IMPRESSION: 1. Pericholecystic fluid is noted likely representing cholecystitis. 2. Mild diverticulosis without evidence of diverticulitis.
--- NOTE | 2018-07-30 16:26 | CT ---
EXAMINATION: CT right forearm with contrast HISTORY: Right arm COMPARISON: None TECHNIQUE: Axial CT imaging obtained through the right forearm following the administration of 55 mL of Isovue-370 in the left antecubital fossa. Coronal and sagittal reconstructions obtained. FINDINGS: There is soft tissue swelling and edema along the ulnar and dorsal aspect of the forearm. No organized fluid collection. No fascial enhancement to suggest necrotizing fasciitis. No subcutaneous air or foreign body. The visualized osseous structures appear intact. IMPRESSION: 1. Right forearm cellulitis without evidence of fasciitis or an abscess.
--- NOTE | 2018-07-30 16:42 | PCM.HP ---
<Addy Hawkins - Last Filed: 07/30/18 16:36> H&P History of Present Illness - General Date of Service: 07/30/18 Admit Problem/Dx: Admission Diagnosis/Problem Admission Diagnosis/Problem Abdominal distension Source of Information: Patient History Limitations: Reports: No Limitations - History of Present Illness Initial Comments - Free Text/Narative: 52F direct admit from clinic for further work up of abdominal distension and discomfort. Patient was recently admitted for RUQ discomfort scheduled for HIDA scan yesterday which revealed biliary dyskinesia with fraction 25%. She presented today to see me in clinic for follow up. she complains of worsening RUQ/epigastric pain, and abdominal distension that began in the past 24 hours. Patient also has a R arm cellulitis which hasn't responded well to PO doxycycline - she thinks its getting worse. Involves the ventral aspect of the forearm, red, painful. She thinks it feelslike a tourniquet is around her elbowmaking it difficult to move her arm but she is able to. She denies any numbness or tingling. Pain is mild. Bilateral Upper Abdomen Pain Score (Numeric/FACES): 9 - Related Data Allergies/Adverse Reactions: Allergies Allergy/AdvReac Type Severity Reaction Status Date / Time hydromorphone [From Dilaudid] Allergy Change Verified 07/26/18 00:18 Mental Status Home Medications: Home Meds Sulfamethoxazole/Trimethoprim [Bactrim Ds Tablet] 1 each PO BID 07/24/18 [ History] Cephalexin [Keflex] 500 mg PO QID 5 Days #20 capsule 07/26/18 [Rx] Diclofenac Sodium [Voltaren] 1 tab PO TID 07/26/18 [History] Doxycycline [Vibramycin] 100 mg PO Q12H 7 Days #14 tab 07/26/18 [Rx] Morphine 15 mg PO Q4H PRN #12 tab 07/26/18 [Rx] Past Medical History HEENT History: Reports: None Cardiovascular History: Reports: Other (See Below) Other Cardiovascular History: states she had a heart attack at age 32 Respiratory History: Reports: Asthma, SOB Gastrointestinal History: Reports: None, Cholelithiasis Genitourinary History: Reports: None 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: Reports: Other OB/BYN History: C- Section, Ovaraian Cyst Aspiration and tubal ligation Musculoskeletal History: Reports: None Neurological History: Reports: None Psychiatric History: Reports: Depression Endocrine/Metabolic History: Reports: None Hematologic History: Reports: None Immunologic History: Reports: None Oncologic (Cancer) History: Reports: None Dermatologic History: Reports: Cellulitis - Infectious Disease History Infectious Disease History: Reports: Chicken Pox, Measles, Meningitis - Past Surgical History Head Surgeries/Procedures: Reports: None Cardiovascular Surgical History: Reports: None Respiratory Surgical History: Reports: None GI Surgical History: Reports: None Endocrine Surgical History: Reports: None Musculoskeletal Surgical History: Reports: None Social & Family History - Family History Family Medical History: Noncontributory - Tobacco Use Smoking Status *Q: Current Every Day Smoker Years of Tobacco use: 30 Packs/Tins Daily: 0.5 Used Tobacco, but Quit: No Second Hand Smoke Exposure: No - Caffeine Use Caffeine Use: Reports: Coffee - Recreational Drug Use Recreational Drug Use: No H&P Review of Systems - Review of Systems: Review Of Systems: ROS reveals no pertinent complaints other than HPI. Exam - Exam Exam: See Below - Vital Signs Vital Signs: Last Vital Signs Temp 37.3 C 07/30/18 14:32 Pulse 111 H 07/30/18 14:32 Resp 20 07/30/18 14:32 BP 107/84 07/30/18 14:32 Pulse Ox 99 07/30/18 14:32 Weight: 45.416 kg - Exam Quality Assessment: Supplemental Oxygen General: Alert, Oriented, 4 HEENT: PERRLA, Hearing Intact, Mucosa Moist & [place], Nares Patent, Normal Nasal Septum, Posterior Pharynx Clear, Conjunctiva Clear, EOMI, EACs Clear, TMs Clear Neck: Supple, Trachea Midline, 2 Lungs: Clear to Auscultation, Normal Respiratory Effort Cardiovascular: Regular Rate, Regular Rhythm GI/Abdominal Exam: Soft, Other (distended abdomen, tenderness to palpation in RUQ/epigastric region) Back Exam: Normal Inspection, Full Range of Motion, NT Extremities: Normal Inspection, Normal Range of Motion, Non-Tender, No Pedal Edema, Normal Capillary Refill Peripheral Pulses: 2+: Dorsalis Pedis (L), Dorsalis Pedis (R) Skin: Other (4cm cellulitic lesion involving ventarl aspect of R forearm, nontender to palpation. Rough texture) - Patient Data Lab Results Last 24 hrs: Laboratory Results - last 24 hr 07/30/18 07/30/18 07/30/18 Range/Units 14:47 14:47 14:47 WBC 9.48 (4.0-11.0) K/uL RBC 4.49 (4.30-5.90) M/uL Hgb 14.3 (12.0-16.0) g/dL Hct 44.5 (36.0-46.0) % MCV 99.1 H (80.0-98.0) fL MCH 31.8 (27.0-32.0) pg MCHC 32.1 (31.0-37.0) g/dL RDW Std Deviation 48.5 (28.0-62.0) fl RDW Coeff of Lorie 14 (11.0-15.0) % Plt Count 301 (150-400) K/uL MPV 10.50 (7.40-12.00) fL Neut % (Auto) 72.8 (48.0-80.0) % Lymph % (Auto) 17.9 (16.0-40.0) % Chase % (Auto) 6.1 (0.0-15.0) % Eos % (Auto) 3.0 (0.0-7.0) % Baso % (Auto) 0.2 (0.0-1.5) % Neut # (Auto) 6.9 H (1.4-5.7) K/uL Lymph # (Auto) 1.7 (0.6-2.4) K/uL Chase # (Auto) 0.6 (0.0-0.8) K/uL Eos # (Auto) 0.3 (0.0-0.7) K/uL Baso # (Auto) 0.0 (0.0-0.1) K/uL Nucleated RBC % 0.0 /100WBC Nucleated RBCs # 0 K/uL ESR 14 (0-29) mm/hr Sodium 139 (136-145) mmol/L Potassium 4.4 (3.5-5.1) mmol/L Chloride 102 (98-107) mmol/L Carbon Dioxide 23.0 (21.0-32.0) mmol/L BUN 7 (7.0-18.0) mg/dL Creatinine 0.7 (0.6-1.0) mg/dL Est Cr Clr Drug Dosing 68.93 mL/min Estimated GFR (MDRD) > 60.0 ml/min Glucose 116 H (74-106) mg/dL Calcium 9.5 (8.5-10.1) mg/dL Total Bilirubin 0.5 (0.2-1.0) mg/dL AST 37 (15-37) IU/L ALT 52 (14-63) IU/L Alkaline Phosphatase 79 (46-116) U/L Troponin I < 0.050 (0.000-0.056) ng/mL C-Reactive Protein 1.30 H (0.00-0.90) mg/dL Total Protein 8.2 (6.4-8.2) g/dL Albumin 4.4 (3.4-5.0) g/dL Globulin 3.8 (2.6-4.0) g/dL Albumin/Globulin Ratio 1.2 (0.9-1.6) Result Diagrams: 07/30/18 14:47 07/30/18 14:47 Problem List Initiated/Reviewed/Updated: Yes Orders Last 24hrs: Active Orders 24 hr Category Date Time Status Patient Status [ADT] Routine ADT 07/30/18 14:33 Active Antiembolic Devices [RC] PER UNIT ROUTINE Care 07/30/18 14:35 Active EKG Documentation Completion [RC] STAT Care 07/30/18 14:29 Active Notify Provider Consults [RC] ASDIRECTED Care 07/30/18 14:35 Active Oxygen Therapy [RC] PRN Care 07/30/18 14:33 Active Up ad Magalys [RC] ASDIRECTED Care 07/30/18 14:33 Active VTE/DVT Education [RC] PER UNIT ROUTINE Care 07/30/18 14:33 Active Vital Signs [RC] Q4H Care 07/30/18 14:33 Active Consult to Physician [CONS] Routine Cons 07/30/18 14:33 Active NPO [Nothing Per Oral Diet] [DIET] Diet 07/30/18 Dinner Active CULTURE BLOOD [BC] Stat Lab 07/30/18 14:47 Received CULTURE BLOOD [BC] Stat Lab 07/30/18 14:59 Received Nicotine [Habitrol] Med 07/30/18 15:30 Active 14 mg TRDERM DAILY Ondansetron [Zofran] Med 07/30/18 14:33 Active 4 mg IVPUSH Q4H PRN Pharmacy to Dose - Vancomycin Med 07/30/18 16:30 Ordered 1 dose .XX ASDIRECTED Piperacillin/Tazobactam [Piperacil-Tazobact] 4.5 gm Med 07/30/18 16:30 Ordered Sodium Chloride 0.9% [Normal Saline] 100 ml IV Q6H Blood Culture x2 Reflex Set [OM.PC] Stat Oth 07/30/18 14:33 Ordered Sequential Compression Device [OM.PC] Per Unit Routine Oth 07/30/18 14:34 Ordered Resuscitation Status Routine Resus Stat 07/30/18 14:33 Ordered Medication Orders Piperacillin Sod/Tazobactam (Sod 4.5 gm/ Sodium Chloride) 100 mls @ 100 mls/hr IV Q6H NICK Nicotine (Habitrol) 14 mg TRDERM DAILY NICK Ondansetron HCl (Zofran) 4 mg IVPUSH Q4H PRN PRN Reason: Nausea Vancomycin HCl (Pharmacy To Dose - Vancomycin) 1 dose .XX ASDIRECTED NICK Assessment/Plan Comment:: Assessment: #1. Acute cholecystitis #2. R arm cellulitis #3. Elevated CRP Plan: #1. Admit as inpatient. Vitals per floor. SCD for DVT prophylaxis #2. Consult surgery #3. IV vanc/zosyn for cellulitis/cholecystitis coverage #4. NPO <Jordin Feliciano - Last Filed: 07/30/18 17:22> H&P History of Present Illness - General Admit Problem/Dx: Admission Diagnosis/Problem Admission Diagnosis/Problem Abdominal distension I have seen and examined to patient independently of pediatric medical assistant, Addy Hawkins MD. I have discussed the case for care of this patient with him. I have reviewed and approve of the plan of care as outlined by pediatric medical assistant.. Please see orders. Exam - Vital Signs Vital Signs: Last Vital Signs Temp 37.1 C 07/30/18 16:00 Pulse 90 07/30/18 16:00 Resp 18 07/30/18 16:00 BP 129/65 07/30/18 16:00 Pulse Ox 99 07/30/18 16:00 - Patient Data Lab Results Last 24 hrs: Laboratory Results - last 24 hr 05/21/19 05/21/19 05/21/19 Range/Units 14:47 14:47 14:47 WBC 9.48 (4.0-11.0) K/uL RBC 4.49 (4.30-5.90) M/uL Hgb 14.3 (12.0-16.0) g/dL Hct 44.5 (36.0-46.0) % MCV 99.1 H (80.0-98.0) fL MCH 31.8 (27.0-32.0) pg MCHC 32.1 (31.0-37.0) g/dL RDW Std Deviation 48.5 (28.0-62.0) fl RDW Coeff of Lorie 14 (11.0-15.0) % Plt Count 301 (150-400) K/uL MPV 10.50 (7.40-12.00) fL Neut % (Auto) 72.8 (48.0-80.0) % Lymph % (Auto) 17.9 (16.0-40.0) % Chase % (Auto) 6.1 (0.0-15.0) % Eos % (Auto) 3.0 (0.0-7.0) % Baso % (Auto) 0.2 (0.0-1.5) % Neut # (Auto) 6.9 H (1.4-5.7) K/uL Lymph # (Auto) 1.7 (0.6-2.4) K/uL Chase # (Auto) 0.6 (0.0-0.8) K/uL Eos # (Auto) 0.3 (0.0-0.7) K/uL Baso # (Auto) 0.0 (0.0-0.1) K/uL Nucleated RBC % 0.0 /100WBC Nucleated RBCs # 0 K/uL ESR 14 (0-29) mm/hr Sodium 139 (136-145) mmol/L Potassium 4.4 (3.5-5.1) mmol/L Chloride 102 (98-107) mmol/L Carbon Dioxide 23.0 (21.0-32.0) mmol/L BUN 7 (7.0-18.0) mg/dL Creatinine 0.7 (0.6-1.0) mg/dL Est Cr Clr Drug Dosing 68.93 mL/min Estimated GFR (MDRD) > 60.0 ml/min Glucose 116 H (74-106) mg/dL Calcium 9.5 (8.5-10.1) mg/dL Total Bilirubin 0.5 (0.2-1.0) mg/dL AST 37 (15-37) IU/L ALT 52 (14-63) IU/L Alkaline Phosphatase 79 (46-116) U/L Troponin I < 0.050 (0.000-0.056) ng/mL C-Reactive Protein 1.30 H (0.00-0.90) mg/dL Total Protein 8.2 (6.4-8.2) g/dL Albumin 4.4 (3.4-5.0) g/dL Globulin 3.8 (2.6-4.0) g/dL Albumin/Globulin Ratio 1.2 (0.9-1.6) Result Diagrams: 07/30/18 14:47 07/30/18 14:47 Orders Last 24hrs: Active Orders 24 hr Category Date Time Status Patient Status [ADT] Routine ADT 07/30/18 14:33 Active Antiembolic Devices [RC] PER UNIT ROUTINE Care 07/30/18 14:35 Active EKG Documentation Completion [RC] STAT Care 07/30/18 14:29 Active Notify Provider Consults [RC] ASDIRECTED Care 07/30/18 14:35 Active Oxygen Therapy [RC] PRN Care 07/30/18 14:33 Active Up ad Magalys [RC] ASDIRECTED Care 07/30/18 14:33 Active VTE/DVT Education [RC] PER UNIT ROUTINE Care 07/30/18 14:33 Active Vital Signs [RC] Q4H Care 07/30/18 14:33 Active Consult to Physician [CONS] Routine Cons 07/30/18 14:33 Active NPO [Nothing Per Oral Diet] [DIET] Diet 07/30/18 Dinner Active CULTURE BLOOD [BC] Stat Lab 07/30/18 14:47 Received CULTURE BLOOD [BC] Stat Lab 07/30/18 14:59 Received VANCOMYCIN TROUGH [CHEM] Routine Lab 08/01/18 06:30 Ordered Nicotine [Habitrol] Med 07/30/18 15:30 Active 14 mg TRDERM DAILY Ondansetron [Zofran] Med 07/30/18 14:33 Active 4 mg IVPUSH Q4H PRN Pharmacy to Dose - Vancomycin Med 07/30/18 16:30 Active 1 dose .XX ASDIRECTED Piperacillin/Tazobactam [Piperacil-Tazobact] 4.5 gm Med 07/30/18 16:30 Active Sodium Chloride 0.9% [Normal Saline] 100 ml IV Q6H Vancomycin 0.75 gm Med 07/30/18 19:00 Active Sodium Chloride 0.9% [Normal Saline] 100 ml IV Q12H Blood Culture x2 Reflex Set [OM.PC] Stat Oth 07/30/18 14:33 Ordered Sequential Compression Device [OM.PC] Per Unit Routine Oth 07/30/18 14:34 Ordered Resuscitation Status Routine Resus Stat 07/30/18 14:33 Ordered Medication Orders Piperacillin Sod/Tazobactam (Sod 4.5 gm/ Sodium Chloride) 100 mls @ 100 mls/hr IV Q6H [facility] Last Admin: 07/30/18 17:15 Dose: 100 mls/hr Vancomycin HCl 0.75 gm/ Sodium (Chloride) 100 mls @ 100 mls/hr IV Q12H [facility] Nicotine (Habitrol) 14 mg TRDERM DAILY [facility] Last Admin: 07/30/18 17:08 Dose: 14 mg Ondansetron HCl (Zofran) 4 mg IVPUSH Q4H PRN PRN Reason: Nausea Vancomycin HCl (Pharmacy To Dose - Vancomycin) 1 dose .XX ASDIRECTED [facility]
[2018-07-30] MEDS: Piperacillin/Tazobactam 4.5 GM in Sodium Chloride 0.9% 100 ML IV SCH ×2 (17:15→22:41)
[2018-07-30] MEDS ORDERED: Bisacodyl 5 MG Tab PO ONE (18:08)
[2018-07-30] MEDS ORDERED: Polyethylene Glycol 3350 Powder 17 GM Packet PO ONE (18:09)
--- NOTE | 2018-07-30 18:39 | PCM.CONS ---
H&P History of Present Illness - General Date of Service: 07/30/18 Admit Problem/Dx: Admission Diagnosis/Problem Admission Diagnosis/Problem Abdominal distension I have seen and examined to patient independently of territory sales manager medical, Addy Hawkins MD. I have discussed the case for care of this patient with him. I have reviewed and approve of the plan of care as outlined by territory sales manager medical.. Please see orders. Source of Information: Patient History Limitations: Reports: No Limitations - History of Present Illness Initial Comments - Free Text/Narative: Patient is a 52-year-old female who presented to her primary care provider's office with abdominal pain, bloating and distention. She has had a workup for abdominal pain which included a right upper quadrant ultrasound and CT scan of the abdomen 4 days ago. Both were normal. She underwent an outpatient HIDA scan yesterday which showed biliary dyskinesia. Several hours after the procedure however she developed severe abdominal pain distention and bloating. She has been unable to eat as she is very nauseated. She did have a bowel movement yesterday and passing flatus this morning but hasn't since. She tried over-the- counter laxatives with no improvement in her symptoms. She denies fevers or chills but complains of malaise. She is very short of breath and her oxygen saturations in clinic were 88%. She is a cigarette smoker. She was admitted to the floor. Her oxygenation improved on supplemental nasal cannula. Her white blood cell count was normal. Her LFTs and bilirubin were normal. A CT of the abdomen pelvis was ordered which showed edema surrounding the gallbladder consistent with acute cholecystitis. After ambulating, she felt her abdominal distention had improved. She was able to be weaned off oxygen. Secondly the patient has had a lesion on her right extremity. It started out as a small blistered area which has now progressed to an eczematous reddened lesion. She complains of increased swelling and pain in the extremity. She has undergone 2 different types of antibiotic treatment with no resolution in the redness. Over the last 24 hours it is worsened. She underwent a CT scan which showed evidence of cellulitis underlying the wound. Bilateral Upper Abdomen Pain Score (Numeric/FACES): 9 - Related Data Allergies/Adverse Reactions: Allergies Allergy/AdvReac Type Severity Reaction Status Date / Time hydromorphone [From Dilaudid] Allergy Change Verified 07/26/18 00:18 Mental Status Home Medications: Home Meds Sulfamethoxazole/Trimethoprim [Bactrim Ds Tablet] 1 each PO BID 07/24/18 [ History] Cephalexin [Keflex] 500 mg PO QID 5 Days #20 capsule 07/26/18 [Rx] Diclofenac Sodium [Voltaren] 1 tab PO TID 07/26/18 [History] Doxycycline [Vibramycin] 100 mg PO Q12H 7 Days #14 tab 07/26/18 [Rx] Morphine 15 mg PO Q4H PRN #12 tab 07/26/18 [Rx] Past Medical History HEENT History: Reports: None Cardiovascular History: Reports: Other (See Below) Other Cardiovascular History: states she had a heart attack at age 32 Respiratory History: Reports: Asthma, SOB Gastrointestinal History: Reports: None, Cholelithiasis Genitourinary History: Reports: None 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 OB/BYN History: C- Section, Ovaraian Cyst Aspiration and tubal ligation Musculoskeletal History: Reports: None Neurological History: Reports: None Psychiatric History: Reports: Depression Endocrine/Metabolic History: Reports: None Hematologic History: Reports: None Immunologic History: Reports: None Oncologic (Cancer) History: Reports: None Dermatologic History: Reports: Cellulitis - Infectious Disease History Infectious Disease History: Reports: Chicken Pox, Measles, Meningitis - Past Surgical History Head Surgeries/Procedures: Reports: None Cardiovascular Surgical History: Reports: None Respiratory Surgical History: Reports: None GI Surgical History: Reports: None Endocrine Surgical History: Reports: None Musculoskeletal Surgical History: Reports: None Social & Family History - Family History Family Medical History: Noncontributory - Tobacco Use Smoking Status *Q: Current Every Day Smoker Years of Tobacco use: 30 Packs/Tins Daily: 0.5 Used Tobacco, but Quit: No Second Hand Smoke Exposure: No - Caffeine Use Caffeine Use: Reports: Coffee - Recreational Drug Use Recreational Drug Use: No H&P Review of Systems - Review of Systems: Review Of Systems: ROS reveals no pertinent complaints other than HPI. Exam - Exam Exam: See Below - Vital Signs Vital Signs: Last Vital Signs Temp 37.1 C 07/30/18 16:00 Pulse 90 07/30/18 16:00 Resp 18 07/30/18 16:00 BP 129/65 07/30/18 16:00 Pulse Ox 99 07/30/18 16:00 Weight: 45.416 kg - Exam General: Alert, Oriented HEENT: Conjunctiva Clear, Mucosa Moist & [place], Posterior Pharynx Clear Neck: Supple, Trachea Midline Lungs: Clear to Auscultation, Normal Respiratory Effort Cardiovascular: Regular Rate, Regular Rhythm GI/Abdominal Exam: Soft, Distended (Mild), Other (Positive Jerez sign) Extremities: Other (Scaly lesion over the dorsal aspect of the right forearm. Underlying this the skin appears erythematous. Tender with extreme ranges of motion.) Peripheral Pulses: 2+: Radial (R) Skin: Other (Skin lesion on right upper back that was previously excised. This wound appears healthy with no evidence of infection.) - Patient Data Lab Results Last 24 hrs: Laboratory Results - last 24 hr 07/30/18 07/30/18 07/30/18 Range/Units 14:47 14:47 14:47 WBC 9.48 (4.0-11.0) K/uL RBC 4.49 (4.30-5.90) M/uL Hgb 14.3 (12.0-16.0) g/dL Hct 44.5 (36.0-46.0) % MCV 99.1 H (80.0-98.0) fL MCH 31.8 (27.0-32.0) pg MCHC 32.1 (31.0-37.0) g/dL RDW Std Deviation 48.5 (28.0-62.0) fl RDW Coeff of Lorie 14 (11.0-15.0) % Plt Count 301 (150-400) K/uL MPV 10.50 (7.40-12.00) fL Neut % (Auto) 72.8 (48.0-80.0) % Lymph % (Auto) 17.9 (16.0-40.0) % Early % (Auto) 6.1 (0.0-15.0) % Eos % (Auto) 3.0 (0.0-7.0) % Baso % (Auto) 0.2 (0.0-1.5) % Neut # (Auto) 6.9 H (1.4-5.7) K/uL Lymph # (Auto) 1.7 (0.6-2.4) K/uL Early # (Auto) 0.6 (0.0-0.8) K/uL Eos # (Auto) 0.3 (0.0-0.7) K/uL Baso # (Auto) 0.0 (0.0-0.1) K/uL Nucleated RBC % 0.0 /100WBC Nucleated RBCs # 0 K/uL ESR 14 (0-29) mm/hr Sodium 139 (136-145) mmol/L Potassium 4.4 (3.5-5.1) mmol/L Chloride 102 (98-107) mmol/L Carbon Dioxide 23.0 (21.0-32.0) mmol/L BUN 7 (7.0-18.0) mg/dL Creatinine 0.7 (0.6-1.0) mg/dL Est Cr Clr Drug Dosing 68.93 mL/min Estimated GFR (MDRD) > 60.0 ml/min Glucose 116 H (74-106) mg/dL Calcium 9.5 (8.5-10.1) mg/dL Total Bilirubin 0.5 (0.2-1.0) mg/dL AST 37 (15-37) IU/L ALT 52 (14-63) IU/L Alkaline Phosphatase 79 (46-116) U/L Troponin I < 0.050 (0.000-0.056) ng/mL C-Reactive Protein 1.30 H (0.00-0.90) mg/dL Total Protein 8.2 (6.4-8.2) g/dL Albumin 4.4 (3.4-5.0) g/dL Globulin 3.8 (2.6-4.0) g/dL Albumin/Globulin Ratio 1.2 (0.9-1.6) Result Diagrams: 07/30/18 14:47 07/30/18 14:47 Consult PN Assessment/Plan Procedures: Procedures AIRWAY INHALATION TREATMENT (04/25/18) EMERGENCY DEPT VISIT (07/24/18) EMERGENCY DEPT VISIT (04/25/18) EMERGENCY DEPT VISIT (11/17/15) THER/PROPH/DIAG INJ SC/IM (07/24/18) X-RAY EXAM CHEST 2 VIEWS (07/24/18) X-RAY EXAM OF SHOULDER (11/17/15) (1) Acute cholecystitis without calculus SNOMED Code(s): 78217439 Code(s): K81.0 - ACUTE CHOLECYSTITIS Current Visit: Yes Problem List Initiated/Reviewed/Updated: Yes Plan: The patient and I discussed the pathophysiology of biliary disease. For biliary dyskinesia treatment is removal of the gallbladder. However at this time the patient has developed acute on chronic cholecystitis aggravated by the previous days HIDA scan. I explained to the patient that this now necessitates an urgent cholecystectomy. The patient and I discussed the laparoscopic and open approach to cholecystectomy. Should I be unable to remove the gallbladder safely via the laparoscopic approach I will convert to open. We discussed the expected perioperative course as well as the risks including bleeding infection or damage to surrounding structures. Patient verbalized understanding and wishes to proceed. She'll be kept nothing by mouth other than ice chips and sips with meds. She should be placed on IV Zosyn which will cover any cellulitis of her arm. I will take her to oral morning for surgery. She should placed on IV fluids overnight.
[2018-07-30] MEDS: Nicotine 21 MG/24 Hr Patch TRDERM SCH (18:43)
[2018-07-30] MEDS: Sodium Chloride 0.9% 1,000 ML IV SCH (20:11)
[2018-07-30] MEDS: Morphine 2 MG/ML Syringe IVPUSH PRN (22:40)
[2018-07-30] MEDS: Ondansetron 4 MG/2 ML SDV IVPUSH PRN (22:48)
[2018-07-31] MEDS: Morphine 2 MG/ML Syringe IVPUSH PRN ×7 (00:48→23:20)
[2018-07-31] MEDS: Piperacillin/Tazobactam 4.5 GM in Sodium Chloride 0.9% 100 ML IV SCH ×4 (05:05→22:07)
[2018-07-31] MEDS: Sodium Chloride 0.9% 1,000 ML IV SCH ×2 (05:10→12:38)
[2018-07-31] MEDS ORDERED: Midazolam 1 MG/ML 2 ML SDV ONE (07:14)
[2018-07-31] MEDS ORDERED: Ondansetron 4 MG/2 ML SDV ONE (07:14)
[2018-07-31] MEDS ORDERED: Rocuronium 100 MG/10 ML Syringe ONE (07:14)
[2018-07-31] MEDS ORDERED: fentaNYL 250 MCG/5 ML SDV ONE (07:16)
[2018-07-31] MEDS ORDERED: Bupivacaine 0.5% 30 ML SDV ONE (07:17)
[2018-07-31] MEDS ORDERED: Propofol 200 MG/20 ML SDV ONE (07:18)
--- NOTE | 2018-07-31 07:54 | PCM.PREANE ---
Preanesthetic Assessment - Procedure Proposed Procedure: Laparoscopic cholecystectomy - Anesthesia/Transfusion/Family Hx Anesthesia History: Prior Anesthesia Without Reaction Family History of Anesthesia Reaction: No Transfusion History: Prior Transfusion Without Reaction - Review of Systems General: Weakness Pulmonary: Shortness of Breath Cardiovascular: No Symptoms Gastrointestinal: No Symptoms Neurological: No Symptoms Other: Reports: None - Physical Assessment NPO Status Date: 07/30/18 NPO Status Time: 20:00 Pulse: 85 O2 Sat by Pulse Oximetry: 99 Respiratory Rate: 18 Blood Pressure: 130/77 Temperature: 97.4 F Vital Signs: Last Vital Signs Temp 97.4 F 07/31/18 07:37 Pulse 75 07/31/18 07:37 Resp 18 07/31/18 07:37 BP 130/77 07/31/18 07:37 Pulse Ox 99 07/31/18 07:37 Height: 4 ft 11 in Weight: 100 lb 2 oz ASA Class: 3 Mental Status: Alert & Oriented x3 Airway Class: Mallampati = 2 Dentition: Reports: Normal Dentition ROM/Head Extension: Full Lungs: Clear to Auscultation, Normal Respiratory Effort, Decreased Breath Sounds Cardiovascular: Regular Rate, Regular Rhythm - Lab Values: Laboratory Last Values WBC 9.48 K/uL (4.0-11.0) 07/30/18 14:47 RBC 4.49 M/uL (4.30-5.90) 07/30/18 14:47 Hgb 14.3 g/dL (12.0-16.0) 07/30/18 14:47 Hct 44.5 % (36.0-46.0) 07/30/18 14:47 MCV 99.1 fL (80.0-98.0) H 07/30/18 14:47 MCH 31.8 pg (27.0-32.0) 07/30/18 14:47 MCHC 32.1 g/dL (31.0-37.0) 07/30/18 14:47 RDW Std Deviation 48.5 fl (28.0-62.0) 07/30/18 14:47 RDW Coeff of Lorie 14 % (11.0-15.0) 07/30/18 14:47 Plt Count 301 K/uL (150-400) 07/30/18 14:47 MPV 10.50 fL (7.40-12.00) 07/30/18 14:47 Neut % (Auto) 72.8 % (48.0-80.0) 07/30/18 14:47 Lymph % (Auto) 17.9 % (16.0-40.0) 07/30/18 14:47 [place] % (Auto) 6.1 % (0.0-15.0) 07/30/18 14:47 Eos % (Auto) 3.0 % (0.0-7.0) 07/30/18 14:47 Baso % (Auto) 0.2 % (0.0-1.5) 07/30/18 14:47 Neut # (Auto) 6.9 K/uL (1.4-5.7) H 07/30/18 14:47 Lymph # (Auto) 1.7 K/uL (0.6-2.4) 07/30/18 14:47 [place] # (Auto) 0.6 K/uL (0.0-0.8) 07/30/18 14:47 Eos # (Auto) 0.3 K/uL (0.0-0.7) 07/30/18 14:47 Baso # (Auto) 0.0 K/uL (0.0-0.1) 07/30/18 14:47 Nucleated RBC % 0.0 /100WBC 07/30/18 14:47 Nucleated RBCs # 0 K/uL 07/30/18 14:47 ESR 14 mm/hr (0-29) 07/30/18 14:47 Sodium 139 mmol/L (136-145) 07/30/18 14:47 Potassium 4.4 mmol/L (3.5-5.1) 07/30/18 14:47 Chloride 102 mmol/L (98-107) 07/30/18 14:47 Carbon Dioxide 23.0 mmol/L (21.0-32.0) 07/30/18 14:47 BUN 7 mg/dL (7.0-18.0) 07/30/18 14:47 Creatinine 0.7 mg/dL (0.6-1.0) 07/30/18 14:47 Est Cr Clr Drug Dosing 68.93 mL/min 07/30/18 14:47 Estimated GFR (MDRD) > 60.0 ml/min 07/30/18 14:47 Glucose 116 mg/dL (74-106) H 07/30/18 14:47 Calcium 9.5 mg/dL (8.5-10.1) 07/30/18 14:47 Total Bilirubin 0.5 mg/dL (0.2-1.0) 07/30/18 14:47 AST 37 IU/L (15-37) 07/30/18 14:47 ALT 52 IU/L (14-63) 07/30/18 14:47 Alkaline Phosphatase 79 U/L (46-116) 07/30/18 14:47 Troponin I < 0.050 ng/mL (0.000-0.056) 07/30/18 14:47 C-Reactive Protein 1.30 mg/dL (0.00-0.90) H 07/30/18 14:47 Total Protein 8.2 g/dL (6.4-8.2) 07/30/18 14:47 Albumin 4.4 g/dL (3.4-5.0) 07/30/18 14:47 Globulin 3.8 g/dL (2.6-4.0) 07/30/18 14:47 Albumin/Globulin Ratio 1.2 (0.9-1.6) 07/30/18 14:47 - Allergies Allergies/Adverse Reactions: Allergies Allergy/AdvReac Type Severity Reaction Status Date / Time hydromorphone [From Dilaudid] Allergy Change Verified 07/26/18 00:18 Mental Status - Anesthesia Plan Free Text/Narrative:: general ETT - Acknowledgements Anesthesia Type Planned: General Anesthesia Pt an Appropriate Candidate for the Planned Anesthesia: Yes Alternatives and Risks of Anesthesia Discussed w Pt/Guardian: Yes Pt/Guardian Understands and Agrees with Anesthesia Plan: Yes PreAnesthesia Questionnaire HEENT History: Reports: None Cardiovascular History: Reports: Other (See Below) Other Cardiovascular History: states she had a heart attack at age 32 Respiratory History: Reports: Asthma, SOB Gastrointestinal History: Reports: None, Cholelithiasis Genitourinary History: Reports: None [employer] History: Reports: Other OB/BYN History: C- Section, Ovaraian Cyst Aspiration and tubal ligation Musculoskeletal History: Reports: None Neurological History: Reports: None Psychiatric History: Reports: Depression Endocrine/Metabolic History: Reports: None Hematologic History: Reports: None Immunologic History: Reports: None Oncologic (Cancer) History: Reports: None Dermatologic History: Reports: Cellulitis - Infectious Disease History Infectious Disease History: Reports: Chicken Pox, Measles, Meningitis - Past Surgical History Head Surgeries/Procedures: Reports: None Cardiovascular Surgical History: Reports: None Respiratory Surgical History: Reports: None GI Surgical History: Reports: None Endocrine Surgical History: Reports: None Musculoskeletal Surgical History: Reports: None - SUBSTANCE USE Smoking Status *Q: Current Every Day Smoker Tobacco Use Within Last Twelve Months: Cigarettes Second Hand Smoke Exposure: No Recreational Drug Use History: No - HOME MEDS Home Medications: Home Meds Sulfamethoxazole/Trimethoprim [Bactrim Ds Tablet] 1 each PO BID 07/24/18 [ History] Cephalexin [Keflex] 500 mg PO QID 5 Days #20 capsule 07/26/18 [Rx] Diclofenac Sodium [Voltaren] 1 tab PO TID 07/26/18 [History] Doxycycline [Vibramycin] 100 mg PO Q12H 7 Days #14 tab 07/26/18 [Rx] Morphine 15 mg PO Q4H PRN #12 tab 07/26/18 [Rx] - CURRENT (IN HOUSE) MEDS Current Meds: Current Medications Piperacillin Sod/Tazobactam (Sod 4.5 gm/ Sodium Chloride) 100 mls @ 100 mls/hr IV Q6H [facility] Last Admin: 07/31/18 05:05 Dose: 100 mls/hr Sodium Chloride (Normal Saline) 1,000 mls @ 125 mls/hr IV ASDIRECTED [facility] Last Admin: 07/31/18 05:10 Dose: 125 mls/hr Vancomycin HCl 0.75 gm/ Sodium (Chloride) 250 mls @ 250 mls/hr IV Q12H [facility] Morphine Sulfate (Morphine) 2 mg IVPUSH Q2H PRN PRN Reason: Pain Last Admin: 07/31/18 05:05 Dose: 2 mg Nicotine (Habitrol) 21 mg TRDERM DAILY [facility] Last Admin: 07/30/18 18:43 Dose: 21 mg Ondansetron HCl (Zofran) 4 mg IVPUSH Q4H PRN PRN Reason: Nausea Last Admin: 07/30/18 22:48 Dose: 4 mg Vancomycin HCl (Pharmacy To Dose - Vancomycin) 1 dose .XX ASDIRECTED [facility] Discontinued Medications Bisacodyl (Dulcolax) 10 mg PO ONETIME ONE Stop: 07/30/18 18:09 Last Admin: 07/30/18 18:41 Dose: 10 mg Bupivacaine HCl (Marcaine 0.5%) Confirm Administered Dose 30 ml .ROUTE .STK-MED ONE Stop: 07/31/18 07:18 Fentanyl (Sublimaze) Confirm Administered Dose 250 mcg .ROUTE .STK-MED ONE Stop: 07/31/18 07:17 Vancomycin HCl 0.75 gm/ Sodium (Chloride) 100 mls @ 100 mls/hr IV Q12H [facility] Last Admin: 07/31/18 06:05 Dose: 100 mls/hr Lidocaine HCl (Xylocaine-Mpf 1%) Confirm Administered Dose 5 mls @ as directed .ROUTE .STK-MED ONE Stop: 07/31/18 07:15 Iopamidol (Isovue Multipack-370 (76%)) 55 ml IVPUSH ONETIME STA Stop: 07/30/18 16:12 Last Admin: 07/30/18 16:14 Dose: 55 ml Midazolam HCl (Versed 1 Mg/Ml) Confirm Administered Dose 2 mg .ROUTE .STK-MED ONE Stop: 07/31/18 07:15 Nicotine (Habitrol) 14 mg TRDERM DAILY [facility] Last Admin: 07/30/18 17:08 Dose: 14 mg Ondansetron HCl (Zofran) Confirm Administered Dose 4 mg .ROUTE .STK-MED ONE Stop: 07/31/18 07:15 Polyethylene Glycol (Miralax) 17 gm PO ONETIME ONE Stop: 07/30/18 18:10 Last Admin: 07/30/18 18:42 Dose: 17 gm Propofol (Diprivan 20 Ml) Confirm Administered Dose 200 mg .ROUTE .STK-MED ONE Stop: 07/31/18 07:19 Rocuronium [place] (Zemuron) Confirm Administered Dose 100 mg .ROUTE .STK-MED ONE Stop: 07/31/18 07:15
[2018-07-31 08:08] LABS: CHLORIDE,CL 108 mmol/L (98-107); SODIUM,NA 142 mmol/L (136-145)
--- NOTE | 2018-07-31 09:10 | PCM.PN ---
<Addy Hawkins - Last Filed: 07/31/18 09:09> - General Info Date of Service: 07/31/18 Subjective Update: Feels better this morning. Complaining of less abdominal distension and thinks her forearm cellulitis is improving. - Patient Data Vitals - Most Recent: Last Vital Signs Temp 36.3 C 07/31/18 07:54 Pulse 85 07/31/18 07:54 Resp 18 07/31/18 07:54 BP 130/77 07/31/18 07:54 Pulse Ox 99 07/31/18 07:54 Weight - Most Recent: 45.416 kg I&O - Last 24 Hours: Intake & Output 07/30/18 07/31/18 07/31/18 22:59 06:59 14:59 Intake Total 0 1270 Output Total 100 600 Balance -100 670 Lab Results Last 24 Hours: Laboratory Results - last 24 hr 07/30/18 07/30/18 07/30/18 Range/Units 14:47 14:47 14:47 WBC 9.48 (4.0-11.0) K/uL RBC 4.49 (4.30-5.90) M/uL Hgb 14.3 (12.0-16.0) g/dL Hct 44.5 (36.0-46.0) % MCV 99.1 H (80.0-98.0) fL MCH 31.8 (27.0-32.0) pg MCHC 32.1 (31.0-37.0) g/dL RDW Std Deviation 48.5 (28.0-62.0) fl RDW Coeff of Lorie 14 (11.0-15.0) % Plt Count 301 (150-400) K/uL MPV 10.50 (7.40-12.00) fL Neut % (Auto) 72.8 (48.0-80.0) % Lymph % (Auto) 17.9 (16.0-40.0) % [place] % (Auto) 6.1 (0.0-15.0) % Eos % (Auto) 3.0 (0.0-7.0) % Baso % (Auto) 0.2 (0.0-1.5) % Neut # (Auto) 6.9 H (1.4-5.7) K/uL Lymph # (Auto) 1.7 (0.6-2.4) K/uL [place] # (Auto) 0.6 (0.0-0.8) K/uL Eos # (Auto) 0.3 (0.0-0.7) K/uL Baso # (Auto) 0.0 (0.0-0.1) K/uL Nucleated RBC % 0.0 /100WBC Nucleated RBCs # 0 K/uL ESR 14 (0-29) mm/hr Sodium 139 (136-145) mmol/L Potassium 4.4 (3.5-5.1) mmol/L Chloride 102 (98-107) mmol/L Carbon Dioxide 23.0 (21.0-32.0) mmol/L BUN 7 (7.0-18.0) mg/dL Creatinine 0.7 (0.6-1.0) mg/dL Est Cr Clr Drug Dosing 68.93 mL/min Estimated GFR (MDRD) > 60.0 ml/min Glucose 116 H (74-106) mg/dL Calcium 9.5 (8.5-10.1) mg/dL Total Bilirubin 0.5 (0.2-1.0) mg/dL AST 37 (15-37) IU/L ALT 52 (14-63) IU/L Alkaline Phosphatase 79 (46-116) U/L Troponin I < 0.050 (0.000-0.056) ng/mL C-Reactive Protein 1.30 H (0.00-0.90) mg/dL Total Protein 8.2 (6.4-8.2) g/dL Albumin 4.4 (3.4-5.0) g/dL Globulin 3.8 (2.6-4.0) g/dL Albumin/Globulin Ratio 1.2 (0.9-1.6) 07/31/18 07/31/18 Range/Units 07:36 07:36 WBC 7.03 (4.0-11.0) K/uL RBC 3.55 L (4.30-5.90) M/uL Hgb 11.3 L (12.0-16.0) g/dL Hct 35.3 L (36.0-46.0) % MCV 99.4 H (80.0-98.0) fL MCH 31.8 (27.0-32.0) pg MCHC 32.0 (31.0-37.0) g/dL RDW Std Deviation 49.4 (28.0-62.0) fl RDW Coeff of Lorie 14 (11.0-15.0) % Plt Count 258 (150-400) K/uL MPV 9.90 (7.40-12.00) fL Neut % (Auto) (48.0-80.0) % Lymph % (Auto) (16.0-40.0) % [place] % (Auto) (0.0-15.0) % Eos % (Auto) (0.0-7.0) % Baso % (Auto) (0.0-1.5) % Neut # (Auto) (1.4-5.7) K/uL Lymph # (Auto) (0.6-2.4) K/uL [place] # (Auto) (0.0-0.8) K/uL Eos # (Auto) (0.0-0.7) K/uL Baso # (Auto) (0.0-0.1) K/uL Nucleated RBC % 0.0 /100WBC Nucleated RBCs # 0 K/uL ESR (0-29) mm/hr Sodium 142 (136-145) mmol/L Potassium 4.0 (3.5-5.1) mmol/L Chloride 108 H (98-107) mmol/L Carbon Dioxide 23.7 (21.0-32.0) mmol/L BUN 8 (7.0-18.0) mg/dL Creatinine 0.8 (0.6-1.0) mg/dL Est Cr Clr Drug Dosing 60.32 mL/min Estimated GFR (MDRD) > 60.0 ml/min Glucose 92 (74-106) mg/dL Calcium 8.3 L (8.5-10.1) mg/dL Total Bilirubin 0.7 (0.2-1.0) mg/dL AST 24 (15-37) IU/L ALT 38 (14-63) IU/L Alkaline Phosphatase 58 (46-116) U/L Troponin I (0.000-0.056) ng/mL C-Reactive Protein (0.00-0.90) mg/dL Total Protein 5.8 L (6.4-8.2) g/dL Albumin 3.1 L (3.4-5.0) g/dL Globulin 2.7 (2.6-4.0) g/dL Albumin/Globulin Ratio 1.2 (0.9-1.6) Med Orders - Current: Current Medications Piperacillin Sod/Tazobactam (Sod 4.5 gm/ Sodium Chloride) 100 mls @ 100 mls/hr IV Q6H [facility] Last Admin: 07/31/18 05:05 Dose: 100 mls/hr Sodium Chloride (Normal Saline) 1,000 mls @ 125 mls/hr IV ASDIRECTED [facility] Last Admin: 07/31/18 05:10 Dose: 125 mls/hr Vancomycin HCl 0.75 gm/ Sodium (Chloride) 250 mls @ 250 mls/hr IV Q12H [facility] Morphine Sulfate (Morphine) 2 mg IVPUSH Q2H PRN PRN Reason: Pain Last Admin: 07/31/18 05:05 Dose: 2 mg Nicotine (Habitrol) 21 mg TRDERM DAILY [facility] Last Admin: 07/30/18 18:43 Dose: 21 mg Ondansetron HCl (Zofran) 4 mg IVPUSH Q4H PRN PRN Reason: Nausea Last Admin: 07/30/18 22:48 Dose: 4 mg Vancomycin HCl (Pharmacy To Dose - Vancomycin) 1 dose .XX ASDIRECTED [facility] Discontinued Medications Bisacodyl (Dulcolax) 10 mg PO ONETIME ONE Stop: 07/30/18 18:09 Last Admin: 07/30/18 18:41 Dose: 10 mg Bupivacaine HCl (Marcaine 0.5%) Confirm Administered Dose 30 ml .ROUTE .STK-MED ONE Stop: 07/31/18 07:18 Fentanyl (Sublimaze) Confirm Administered Dose 250 mcg .ROUTE .STK-MED ONE Stop: 07/31/18 07:17 Vancomycin HCl 0.75 gm/ Sodium (Chloride) 100 mls @ 100 mls/hr IV Q12H [facility] Last Admin: 07/31/18 06:05 Dose: 100 mls/hr Lidocaine HCl (Xylocaine-Mpf 1%) Confirm Administered Dose 5 mls @ as directed .ROUTE .STK-MED ONE Stop: 07/31/18 07:15 Iopamidol (Isovue Multipack-370 (76%)) 55 ml IVPUSH ONETIME STA Stop: 07/30/18 16:12 Last Admin: 07/30/18 16:14 Dose: 55 ml Midazolam HCl (Versed 1 Mg/Ml) Confirm Administered Dose 2 mg .ROUTE .STK-MED ONE Stop: 07/31/18 07:15 Nicotine (Habitrol) 14 mg TRDERM DAILY [facility] Last Admin: 07/30/18 17:08 Dose: 14 mg Ondansetron HCl (Zofran) Confirm Administered Dose 4 mg .ROUTE .STK-MED ONE Stop: 07/31/18 07:15 Polyethylene Glycol (Miralax) 17 gm PO ONETIME ONE Stop: 07/30/18 18:10 Last Admin: 07/30/18 18:42 Dose: 17 gm Propofol (Diprivan 20 Ml) Confirm Administered Dose 200 mg .ROUTE .STK-MED ONE Stop: 07/31/18 07:19 Rocuronium [place] (Zemuron) Confirm Administered Dose 100 mg .ROUTE .STK-MED ONE Stop: 07/31/18 07:15 - Exam General: Alert, Oriented HEENT: Pupils Equal, Pupils Reactive, EOMI, Mucous Membr. Moist/[place] Lungs: Clear to Auscultation, Normal Respiratory Effort Cardiovascular: Regular Rate, Regular Rhythm GI/Abdominal Exam: Normal Bowel Sounds, Soft, Non-Tender, No Organomegaly, No Distention, No Abnormal Bruit, No Mass Skin: Other (decreasing erythema R forearm, mildly warmer than L forearm) - Problem List Review Problem List Initiated/Reviewed/Updated: Yes - My Orders Last 24 Hours: My Active Orders 07/30/18 14:29 EKG Documentation Completion [RC] STAT 07/30/18 14:33 Patient Status [ADT] Routine Oxygen Therapy [RC] PRN Up ad Magalys [RC] ASDIRECTED VTE/DVT Education [RC] PER UNIT ROUTINE Vital Signs [RC] Q4H Consult to Physician [CONS] Routine Ondansetron [Zofran] 4 mg IVPUSH Q4H PRN Blood Culture x2 Reflex Set [OM.PC] Stat Resuscitation Status Routine 07/30/18 14:34 Sequential Compression Device [OM.PC] Per Unit Routine 07/30/18 14:35 Antiembolic Devices [RC] PER UNIT ROUTINE Notify Provider Consults [RC] ASDIRECTED 07/30/18 14:47 CULTURE BLOOD [BC] Stat 07/30/18 14:59 CULTURE BLOOD [BC] Stat 07/30/18 16:30 Pharmacy to Dose - Vancomycin 1 dose .XX ASDIRECTED Piperacillin/Tazobactam [Piperacil-Tazobact] 4.5 gm Sodium Chloride 0.9% [ Normal Saline] 100 ml IV Q6H 07/30/18 18:15 Nicotine [Habitrol] 21 mg TRDERM DAILY 07/30/18 Dinner NPO [Nothing Per Oral Diet] [DIET] 07/31/18 19:00 Vancomycin 0.75 gm Sodium Chloride 0.9% [Normal Saline] 250 ml IV Q12H 08/01/18 06:30 VANCOMYCIN TROUGH [CHEM] Routine - Plan Plan:: Assessment: #1. Acute cholecystitis #2. R arm cellulitis #3. Elevated CRP Plan: #1. Will be going for cholecystectomy today with general surgery #2. Re-evaluate post-op #3. Continue current management otherwise for now <Jordin Feliciano - Last Filed: 07/31/18 09:30> - General Info Admission Dx/Problem (Free Text): I have seen and examined to patient independently of medical examiner, Addy Hawkins MD. I have discussed the case for care of this patient with him. I have reviewed and approve of the plan of care as outlined by medical examiner.. Please see orders. - Patient Data Vitals - Most Recent: Last Vital Signs Temp 36.3 C 07/31/18 07:54 Pulse 85 07/31/18 07:54 Resp 18 07/31/18 07:54 BP 130/77 07/31/18 07:54 Pulse Ox 99 07/31/18 07:54 I&O - Last 24 Hours: Intake & Output 07/30/18 07/31/18 07/31/18 22:59 06:59 14:59 Intake Total 0 1270 Output Total 100 600 Balance -100 670 Lab Results Last 24 Hours: Laboratory Results - last 24 hr 07/30/18 07/30/18 07/30/18 Range/Units 14:47 14:47 14:47 WBC 9.48 (4.0-11.0) K/uL RBC 4.49 (4.30-5.90) M/uL Hgb 14.3 (12.0-16.0) g/dL Hct 44.5 (36.0-46.0) % MCV 99.1 H (80.0-98.0) fL MCH 31.8 (27.0-32.0) pg MCHC 32.1 (31.0-37.0) g/dL RDW Std Deviation 48.5 (28.0-62.0) fl RDW Coeff of Lorie 14 (11.0-15.0) % Plt Count 301 (150-400) K/uL MPV 10.50 (7.40-12.00) fL Neut % (Auto) 72.8 (48.0-80.0) % Lymph % (Auto) 17.9 (16.0-40.0) % [place] % (Auto) 6.1 (0.0-15.0) % Eos % (Auto) 3.0 (0.0-7.0) % Baso % (Auto) 0.2 (0.0-1.5) % Neut # (Auto) 6.9 H (1.4-5.7) K/uL Lymph # (Auto) 1.7 (0.6-2.4) K/uL [place] # (Auto) 0.6 (0.0-0.8) K/uL Eos # (Auto) 0.3 (0.0-0.7) K/uL Baso # (Auto) 0.0 (0.0-0.1) K/uL Nucleated RBC % 0.0 /100WBC Nucleated RBCs # 0 K/uL ESR 14 (0-29) mm/hr Sodium 139 (136-145) mmol/L Potassium 4.4 (3.5-5.1) mmol/L Chloride 102 (98-107) mmol/L Carbon Dioxide 23.0 (21.0-32.0) mmol/L BUN 7 (7.0-18.0) mg/dL Creatinine 0.7 (0.6-1.0) mg/dL Est Cr Clr Drug Dosing 68.93 mL/min Estimated GFR (MDRD) > 60.0 ml/min Glucose 116 H (74-106) mg/dL Calcium 9.5 (8.5-10.1) mg/dL Total Bilirubin 0.5 (0.2-1.0) mg/dL AST 37 (15-37) IU/L ALT 52 (14-63) IU/L Alkaline Phosphatase 79 (46-116) U/L Troponin I < 0.050 (0.000-0.056) ng/mL C-Reactive Protein 1.30 H (0.00-0.90) mg/dL Total Protein 8.2 (6.4-8.2) g/dL Albumin 4.4 (3.4-5.0) g/dL Globulin 3.8 (2.6-4.0) g/dL Albumin/Globulin Ratio 1.2 (0.9-1.6) 07/31/18 07/31/18 Range/Units 07:36 07:36 WBC 7.03 (4.0-11.0) K/uL RBC 3.55 L (4.30-5.90) M/uL Hgb 11.3 L (12.0-16.0) g/dL Hct 35.3 L (36.0-46.0) % MCV 99.4 H (80.0-98.0) fL MCH 31.8 (27.0-32.0) pg MCHC 32.0 (31.0-37.0) g/dL RDW Std Deviation 49.4 (28.0-62.0) fl RDW Coeff of Lorie 14 (11.0-15.0) % Plt Count 258 (150-400) K/uL MPV 9.90 (7.40-12.00) fL Neut % (Auto) (48.0-80.0) % Lymph % (Auto) (16.0-40.0) % [place] % (Auto) (0.0-15.0) % Eos % (Auto) (0.0-7.0) % Baso % (Auto) (0.0-1.5) % Neut # (Auto) (1.4-5.7) K/uL Lymph # (Auto) (0.6-2.4) K/uL [place] # (Auto) (0.0-0.8) K/uL Eos # (Auto) (0.0-0.7) K/uL Baso # (Auto) (0.0-0.1) K/uL Nucleated RBC % 0.0 /100WBC Nucleated RBCs # 0 K/uL ESR (0-29) mm/hr Sodium 142 (136-145) mmol/L Potassium 4.0 (3.5-5.1) mmol/L Chloride 108 H (98-107) mmol/L Carbon Dioxide 23.7 (21.0-32.0) mmol/L BUN 8 (7.0-18.0) mg/dL Creatinine 0.8 (0.6-1.0) mg/dL Est Cr Clr Drug Dosing 60.32 mL/min Estimated GFR (MDRD) > 60.0 ml/min Glucose 92 (74-106) mg/dL Calcium 8.3 L (8.5-10.1) mg/dL Total Bilirubin 0.7 (0.2-1.0) mg/dL AST 24 (15-37) IU/L ALT 38 (14-63) IU/L Alkaline Phosphatase 58 (46-116) U/L Troponin I (0.000-0.056) ng/mL C-Reactive Protein (0.00-0.90) mg/dL Total Protein 5.8 L (6.4-8.2) g/dL Albumin 3.1 L (3.4-5.0) g/dL Globulin 2.7 (2.6-4.0) g/dL Albumin/Globulin Ratio 1.2 (0.9-1.6) Med Orders - Current: Current Medications Piperacillin Sod/Tazobactam (Sod 4.5 gm/ Sodium Chloride) 100 mls @ 100 mls/hr IV Q6H [facility] Last Admin: 07/31/18 05:05 Dose: 100 mls/hr Sodium Chloride (Normal Saline) 1,000 mls @ 125 mls/hr IV ASDIRECTED [facility] Last Admin: 07/31/18 05:10 Dose: 125 mls/hr Vancomycin HCl 0.75 gm/ Sodium (Chloride) 250 mls @ 250 mls/hr IV Q12H [facility] Morphine Sulfate (Morphine) 2 mg IVPUSH Q2H PRN PRN Reason: Pain Last Admin: 07/31/18 05:05 Dose: 2 mg Nicotine (Habitrol) 21 mg TRDERM DAILY [facility] Last Admin: 07/30/18 18:43 Dose: 21 mg Ondansetron HCl (Zofran) 4 mg IVPUSH Q4H PRN PRN Reason: Nausea Last Admin: 07/30/18 22:48 Dose: 4 mg Vancomycin HCl (Pharmacy To Dose - Vancomycin) 1 dose .XX ASDIRECTED [facility] Discontinued Medications Bisacodyl (Dulcolax) 10 mg PO ONETIME ONE Stop: 07/30/18 18:09 Last Admin: 07/30/18 18:41 Dose: 10 mg Bupivacaine HCl (Marcaine 0.5%) Confirm Administered Dose 30 ml .ROUTE .STK-MED ONE Stop: 07/31/18 07:18 Fentanyl (Sublimaze) Confirm Administered Dose 250 mcg .ROUTE .STK-MED ONE Stop: 07/31/18 07:17 Vancomycin HCl 0.75 gm/ Sodium (Chloride) 100 mls @ 100 mls/hr IV Q12H [facility] Last Admin: 07/31/18 06:05 Dose: 100 mls/hr Lidocaine HCl (Xylocaine-Mpf 1%) Confirm Administered Dose 5 mls @ as directed .ROUTE .STK-MED ONE Stop: 07/31/18 07:15 Iopamidol (Isovue Multipack-370 (76%)) 55 ml IVPUSH ONETIME STA Stop: 07/30/18 16:12 Last Admin: 07/30/18 16:14 Dose: 55 ml Midazolam HCl (Versed 1 Mg/Ml) Confirm Administered Dose 2 mg .ROUTE .STK-MED ONE Stop: 07/31/18 07:15 Nicotine (Habitrol) 14 mg TRDERM DAILY [facility] Last Admin: 07/30/18 17:08 Dose: 14 mg Ondansetron HCl (Zofran) Confirm Administered Dose 4 mg .ROUTE .STK-MED ONE Stop: 07/31/18 07:15 Polyethylene Glycol (Miralax) 17 gm PO ONETIME ONE Stop: 07/30/18 18:10 Last Admin: 07/30/18 18:42 Dose: 17 gm Propofol (Diprivan 20 Ml) Confirm Administered Dose 200 mg .ROUTE .STK-MED ONE Stop: 07/31/18 07:19 Rocuronium [place] (Zemuron) Confirm Administered Dose 100 mg .ROUTE .STK-MED ONE Stop: 07/31/18 07:15 - My Orders Last 24 Hours: My Active Orders 07/30/18 20:00 Sodium Chloride 0.9% [Normal Saline] 1,000 ml IV ASDIRECTED 07/30/18 21:02 Morphine 2 mg IVPUSH Q2H PRN
[2018-07-31] MEDS: Nicotine 21 MG/24 Hr Patch TRDERM SCH (09:37)
[2018-07-31] MEDS ORDERED: Phenylephrine 1% 10 MG/ML SDV ONE (10:19)
[2018-07-31] MEDS ORDERED: Dexamethasone 4 MG/ML 5 ML MDV ONE (10:24)
[2018-07-31] MEDS ORDERED: Desflurane 240 ML Bottle ONE (10:37)
[2018-07-31] MEDS ORDERED: Glycopyrrolate 0.2 MG/ML SDV ONE (10:45)
[2018-07-31] MEDS ORDERED: Neostigmine Methylsulfate 1 MG/ML 5 ML Syringe ONE (10:45)
--- NOTE | 2018-07-31 11:00 | PCM.OPNOTE ---
- General Post-Op/Procedure Note Date of Surgery/Procedure: 07/31/18 Operative Procedure(s): Laparoscopic cholecystectomy Findings: Acutely inflamed and enlarged gallbladder Pre Op Diagnosis: acute cholecystitis Post-Op Diagnosis: same Anesthesia Technique: General ET Tube Primary Surgeon: Nalini Saravia Fluid Replacement, Intraop: 1,200 Output, Urine Amount: 70 EBL in mLs: 10 Condition: Good Free Text/Narrative:: Intake & Output 07/30/18 07/31/18 07/31/18 22:59 06:59 14:59 Intake Total 0 1270 Output Total 100 600 Balance -100 670
[2018-07-31] MEDS: fentaNYL 100 MCG/2 ML SDV IVPUSH PRN ×2 (11:26→11:38)
[2018-07-31] MEDS ORDERED: Prochlorperazine 5 MG in Sodium Chloride 0.9% 50 ML IV ONE (11:30)
[2018-07-31] MEDS ORDERED: Prochlorperazine 10 MG/2 ML SDV ONE (11:33)
[2018-07-31] MEDS ORDERED: Prochlorperazine 10 MG/2 ML SDV IV ONE (11:45)
--- NOTE | 2018-07-31 15:03 | OR ---
SURGEON: NALINI SARAVIA MD DATE OF PROCEDURE: 07/31/2018 PREOPERATIVE DIAGNOSIS: Acute cholecystitis. POSTOPERATIVE DIAGNOSIS: Acute cholecystitis. PROCEDURE PERFORMED: Laparoscopic cholecystectomy. PRIMARY SURGEON: Nalini Saravia MD. ANESTHESIA: General endotracheal anesthesia. FLUIDS: 1200 mL of crystalloid. ESTIMATED BLOOD LOSS: 10 mL. URINE OUTPUT: 70 mL. FINDINGS: Acutely inflamed and distended gallbladder. COMPLICATIONS: None. INDICATIONS: The patient is a 52-year-old female who presented with abdominal pain earlier this week. She underwent a CT scan and ultrasound which were normal. As an outpatient, she underwent a nuclear Medicine HIDA scan which showed biliary dyskinesia. After the HIDA scan was performed, the patient developed acute severe right upper quadrant pain as well as bloating. She had a repeat CT scan that now shows acute cholecystitis. The patient and I discussed the need for a cholecystectomy. Her LFTs were all normal. The patient and I discussed both the laparoscopic and open approaches. I will attempt it laparoscopically, but should I be unable to perform it safely, I will convert it to open. The patient and I discussed the expected perioperative course as well as the risks including bleeding, infection, or damage to surrounding structures. The patient verbalized understanding and wishes to proceed. PROCEDURE IN DETAIL: The patient was brought into the OR and placed on the OR table in supine position. A time-out was completed verifying the patient's name, age, date of , allergies, and procedure to be performed. General endotracheal anesthesia was induced. The left arm was tucked to the patient's side and Belcher catheter placed. The abdomen was prepped and draped in usual standard fashion. I anesthetized the infraumbilical midline with 0.5% Marcaine plain. An 11 blade was used to make an incision along the patient's previous lower midline scar just below the umbilicus. Cautery was used to dissect down through the layers of the subcutaneous fat. I then bluntly dissected down to the fascia. The fascia was elevated with Nelson's and incised sharply with curved Herrmann scissors. Entry into the abdomen was palpated. A 12 mm Olena trocar was placed in the abdomen and it was insufflated. A 5 mm 30 degree scope was inserted. I inspected the area underneath my initial trocar placement. No damage to surrounding structures was noted. 5 mm trocars were placed in the following locations under direct visualization; 1 in the epigastric area, 1 in the right flank, and 1 two fingerbreadths below the right subcostal margin in the midclavicular line. The patient was placed into reverse Trendelenburg position and airplaned slightly to the left. The gallbladder appeared grossly distended and edematous consistent with acute cholecystitis. The dome of the gallbladder was grasped and elevated above the liver. I identified the infundibulum. The peritoneal attachments around the cystic duct and artery were taken down using a combination of gentle blunt dissection and hook cautery. Once my critical view was obtained, a photograph was taken. I doubly clipped and ligated the cystic duct and artery. I then took the gallbladder off the liver bed using electrocautery. Given the amount of inflammation and edema, there was some oozing along the gallbladder fossa. In one area in particular, there was some brisk venous oozing. Two superficial clips were placed, which controlled most of the bleeding, but Surgicel and endoscopic Beth were then placed in the liver bed. This helped achieve hemostasis. The gallbladder was then placed in an EndoCatch bag and removed through the infraumbilical port site. The 12 mm Olena trocar was placed back in the abdomen and I inspected my operative field. I suctioned out any further blood that was around my operative field and along the right pericolic gutter. Another piece of Surgicel was placed in the gallbladder fossa. This stayed dry and there was no further evidence of any bleeding. Once I was assured of my hemostasis, I removed the 5 mm trocars under direct visualization and that will allow the abdomen to desufflate. The 12 mm Olena trocar was removed as well. The fascia at the infraumbilical port site was closed with interrupted 0 Vicryl sutures. The subcutaneous fat layer was closed with interrupted 3-0 Vicryl sutures. The skin was closed with a running 4-0 Monocryl suture. The 5 mm trocar sites were closed with interrupted 4-0 Monocryl sutures. Steri-Strips and sterile dressings were applied. The patient tolerated the procedure well and was taken to the PACU in stable condition. All counts were complete and correct at the end of the case. BONNIE / DENISSE /[id number] MTDD
[2018-07-31] MEDS ORDERED: Morphine 2 MG/ML Syringe IVPUSH ONE (16:57)
[2018-08-01] MEDS: Morphine 2 MG/ML Syringe IVPUSH PRN ×4 (03:54→11:52)
[2018-08-01] MEDS: Piperacillin/Tazobactam 4.5 GM in Sodium Chloride 0.9% 100 ML IV SCH ×2 (03:59→11:10)
[2018-08-01 07:00] LABS: CHLORIDE,CL 110 mmol/L (98-107); SODIUM,NA 144 mmol/L (136-145)
[2018-08-01] MEDS: Nicotine 21 MG/24 Hr Patch TRDERM SCH (08:49)
--- NOTE | 2018-08-01 09:38 | PCM.DCSUM1 ---
<Addy Hawkins - Last Filed: 08/01/18 09:35> Discharge Summary - Hospital Course Free Text/Narrative:: Admission date: 07/30/2018 Discharge date: 08/01/2018 Admission diagnosis: #1. Acute cholecystitis #2. R arm cellulitis #3. Elevated CRP Discharge diagnosis: #1. S/p Laprascopic cholecystectomy #2. R arm cellulitis #3. Constipation Hospital course: 52F who was a direct admit from my clinic after presenting w/ hypoxia, abdominal distension with RUQ pain found to have acute cholecystitis. Surgery was consulted for the patient who then underwent a cholecystectomy. Patient tolerated the procedure well and diet was advanced. Her cellulitis was treated with IV vanc and zosyn which improved her arm cellulitis. She was sent home on PO augmentin for this. She is to f/u with her PCP and general surgeon in 1-2 weeks. - Discharge Data Discharge Date: 08/01/18 Discharge Disposition: Home, Self-Care 01 Condition: Good - Patient Summary/Data Operative Procedure(s) Performed: Laparoscopic cholecystectomy Consults: Consultations 07/30/18 14:33 Consult to Physician [CONS] Routine - Patient Instructions Diet: Usual Diet as Tolerated (low fat), Drink 8-10+ Glasses/Day Diet, Other: low fat Activity: As Tolerated Notify Provider of: Fever, Increased Pain, Nausea and/or Vomiting - Discharge Plan Prescriptions/Med Rec: Amoxicillin/Potassium Clav [Augmentin 875-125 Tablet] 1 each PO Q12H 7 Days #14 tablet Betamethasone Dipropionate [Diprosone 0.05% Oint] 1 g TOP BID 14 Days #1 tube Ondansetron [Zofran ODT] 4 mg PO Q6H PRN #15 tab.dis PRN Reason: Nausea Polyethylene Glycol 3350 [MiraLAX] 17 gm PO DAILY PRN #10 packet PRN Reason: constipation Home Medications: Home Meds Sulfamethoxazole/Trimethoprim [Bactrim Ds Tablet] 1 each PO BID 07/24/18 [ History] Cephalexin [Keflex] 500 mg PO QID 5 Days #20 capsule 07/26/18 [Rx] Diclofenac Sodium [Voltaren] 1 tab PO TID 07/26/18 [History] Doxycycline [Vibramycin] 100 mg PO Q12H 7 Days #14 tab 07/26/18 [Rx] Morphine 15 mg PO Q4H PRN #12 tab 07/26/18 [Rx] Amoxicillin/Potassium Clav [Augmentin 875-125 Tablet] 1 each PO Q12H 7 Days #14 tablet 08/01/18 [Rx] Betamethasone Dipropionate [Diprosone 0.05% Oint] 1 g TOP BID 14 Days #1 tube [Rx] Ondansetron [Zofran ODT] 4 mg PO Q6H PRN #15 tab.dis 08/01/18 [Rx] Polyethylene Glycol 3350 [MiraLAX] 17 gm PO DAILY PRN #10 packet 08/01/18 [Rx] Patient Handouts: Amoxicillin; Clavulanic Acid tablets, Betamethasone skin cream, gel, lotion, or ointment, Laparoscopic Cholecystectomy, Care After, Easy- to-Read, Morphine immediate release tablets, Polyethylene Glycol powder Referrals: Nalini Saravia MD [Physician] - - Discharge Summary/Plan Comment DC Time >30 min.: No - Patient Data Vitals - Most Recent: Last Vital Signs Temp 36.3 C 08/01/18 08:00 Pulse 77 08/01/18 08:00 Resp 18 08/01/18 08:00 BP 131/83 08/01/18 08:00 Pulse Ox 98 08/01/18 08:00 Weight - Most Recent: 45.416 kg I&O - Last 24 hours: Intake & Output 07/31/18 08/01/18 08/01/18 22:59 06:59 14:59 Intake Total 600 1140 Output Total 950 Balance 600 190 Lab Results - Last 24 hrs: Laboratory Results - last 24 hr 08/01/18 08/01/18 08/01/18 Range/Units 06:30 06:30 06:30 WBC 9.77 (4.0-11.0) K/uL RBC 3.38 L (4.30-5.90) M/uL Hgb 10.7 L (12.0-16.0) g/dL Hct 33.9 L (36.0-46.0) % MCV 100.3 H (80.0-98.0) fL MCH 31.7 (27.0-32.0) pg MCHC 31.6 (31.0-37.0) g/dL RDW Std Deviation 48.7 (28.0-62.0) fl RDW Coeff of Lorie 13 (11.0-15.0) % Plt Count 248 (150-400) K/uL MPV 10.10 (7.40-12.00) fL Neut % (Auto) 82.7 H (48.0-80.0) % Lymph % (Auto) 11.0 L (16.0-40.0) % [place] % (Auto) 6.1 (0.0-15.0) % Eos % (Auto) 0.1 (0.0-7.0) % Baso % (Auto) 0.1 (0.0-1.5) % Neut # (Auto) 8.1 H (1.4-5.7) K/uL Lymph # (Auto) 1.1 (0.6-2.4) K/uL [place] # (Auto) 0.6 (0.0-0.8) K/uL Eos # (Auto) 0.0 (0.0-0.7) K/uL Baso # (Auto) 0.0 (0.0-0.1) K/uL Nucleated RBC % 0.0 /100WBC Nucleated RBCs # 0 K/uL Sodium 144 (136-145) mmol/L Potassium 3.5 (3.5-5.1) mmol/L Chloride 110 H (98-107) mmol/L Carbon Dioxide 22.4 (21.0-32.0) mmol/L BUN 5 L (7.0-18.0) mg/dL Creatinine 0.9 (0.6-1.0) mg/dL Est Cr Clr Drug Dosing 53.62 mL/min Estimated GFR (MDRD) > 60.0 ml/min Glucose 154 H (74-106) mg/dL Calcium 8.6 (8.5-10.1) mg/dL Vancomycin Trough 6.9 (5.0-10.0) ug/mL SUSIE Results - Last 24 hrs: Microbiology 07/31/18 23:30 Stool Occult Blood (SUSIE) - Final Stool / Feces NEGATIVE OCCULT BLOOD REFERENCE RANGE: NEGATIVE 07/30/18 14:47 Aerobic Blood Culture - Preliminary Blood - Venous NO GROWTH AFTER 1 DAY Anaerobic Blood Culture - Preliminary NO GROWTH AFTER 1 DAY 07/30/18 14:59 Aerobic Blood Culture - Preliminary Blood - Venous - Lab Draw NO GROWTH AFTER 1 DAY Anaerobic Blood Culture - Preliminary NO GROWTH AFTER 1 DAY Med Orders - Current: Current Medications Betamethasone Dipropionate (Diprosone 0.05% Oint) 0 gm TOP BID [facility] Last Admin: 08/01/18 08:51 Dose: 1 applic Piperacillin Sod/Tazobactam (Sod 4.5 gm/ Sodium Chloride) 100 mls @ 100 mls/hr IV Q6H [facility] Last Admin: 08/01/18 03:59 Dose: 100 mls/hr Vancomycin HCl 0.75 gm/ Sodium (Chloride) 250 mls @ 250 mls/hr IV Q12H [facility] Last Admin: 08/01/18 07:27 Dose: 250 mls/hr Morphine Sulfate (Morphine) 2 mg IVPUSH Q2H PRN PRN Reason: Pain Last Admin: 08/01/18 07:15 Dose: 2 mg Nicotine (Habitrol) 21 mg TRDERM DAILY [facility] Last Admin: 08/01/18 08:49 Dose: 21 mg Ondansetron HCl (Zofran) 4 mg IVPUSH Q4H PRN PRN Reason: Nausea Last Admin: 07/30/18 22:48 Dose: 4 mg Vancomycin HCl (Pharmacy To Dose - Vancomycin) 1 dose .XX ASDIRECTED [facility] Discontinued Medications Bisacodyl (Dulcolax) 10 mg PO ONETIME ONE Stop: 07/30/18 18:09 Last Admin: 07/30/18 18:41 Dose: 10 mg Bupivacaine HCl (Marcaine 0.5%) Confirm Administered Dose 30 ml .ROUTE .STK-MED ONE Stop: 07/31/18 07:18 Desflurane (Suprane) Confirm Administered Dose 240 ml .ROUTE .STK-MED ONE Stop: 07/31/18 10:38 Dexamethasone (Dexamethasone) Confirm Administered Dose 20 mg .ROUTE .STK-MED ONE Stop: 07/31/18 10:25 Fentanyl (Sublimaze) Confirm Administered Dose 250 mcg .ROUTE .STK-MED ONE Stop: 07/31/18 07:17 Fentanyl (Sublimaze) 50 mcg IVPUSH Q5M PRN PRN Reason: Pain Last Admin: 07/31/18 11:38 Dose: 50 mcg Glycopyrrolate (Robinul) Confirm Administered Dose 0.2 mg .ROUTE .STK-MED ONE Stop: 07/31/18 10:46 Vancomycin HCl 0.75 gm/ Sodium (Chloride) 100 mls @ 100 mls/hr IV Q12H [facility] Last Admin: 07/31/18 06:05 Dose: 100 mls/hr Sodium Chloride (Normal Saline) 1,000 mls @ 125 mls/hr IV ASDIRECTED [facility] Last Admin: 07/31/18 12:38 Dose: 125 mls/hr Lidocaine HCl (Xylocaine-Mpf 1%) Confirm Administered Dose 5 mls @ as directed .ROUTE .STK-MED ONE Stop: 07/31/18 07:15 Iopamidol (Isovue Multipack-370 (76%)) 55 ml IVPUSH ONETIME STA Stop: 07/30/18 16:12 Last Admin: 07/30/18 16:14 Dose: 55 ml Midazolam HCl (Versed 1 Mg/Ml) Confirm Administered Dose 2 mg .ROUTE .STK-MED ONE Stop: 07/31/18 07:15 Morphine Sulfate (Morphine) 2 mg IVPUSH ONETIME ONE Stop: 07/31/18 16:58 Last Admin: 07/31/18 17:08 Dose: 2 mg Neostigmine Methylsulfate (Neostigmine) Confirm Administered Dose 5 mg .ROUTE .STK-MED ONE Stop: 07/31/18 10:46 Nicotine (Habitrol) 14 mg TRDERM DAILY [facility] Last Admin: 07/30/18 17:08 Dose: 14 mg Ondansetron HCl (Zofran) Confirm Administered Dose 4 mg .ROUTE .STK-MED ONE Stop: 07/31/18 07:15 Phenylephrine HCl (Candido-Synephrine) Confirm Administered Dose 10 mg .ROUTE .STK- MED ONE Stop: 07/31/18 10:20 Polyethylene Glycol (Miralax) 17 gm PO ONETIME ONE Stop: 07/30/18 18:10 Last Admin: 07/30/18 18:42 Dose: 17 gm Prochlorperazine Edisylate (Compazine) Confirm Administered Dose 10 mg .ROUTE .STK-MED ONE Stop: 07/31/18 11:34 Last Admin: 07/31/18 12:44 Dose: Not Given Prochlorperazine Edisylate (Compazine) 5 mg IV ONETIME ONE Stop: 07/31/18 11:46 Last Admin: 07/31/18 11:37 Dose: 5 mg Propofol (Diprivan 20 Ml) Confirm Administered Dose 200 mg .ROUTE .STK-MED ONE Stop: 07/31/18 07:19 Rocuronium [place] (Zemuron) Confirm Administered Dose 100 mg .ROUTE .STK-MED ONE Stop: 07/31/18 07:15 <Jordin Feliciano - Last Filed: 08/01/18 11:37> Discharge Summary - Hospital Course Free Text/Narrative:: I have seen and examined to patient independently of medical care administrator, Addy Hawkins MD. I have discussed the case for care of this patient with him. I have reviewed and approve of the plan of care as outlined by medical care administrator. Please see orders. - Patient Summary/Data Consults: Consultations 07/30/18 14:33 Consult to Physician [CONS] Routine - Patient Data Vitals - Most Recent: Last Vital Signs Temp 36.3 C 08/01/18 10:07 Pulse 77 08/01/18 10:07 Resp 18 08/01/18 10:07 BP 131/83 08/01/18 10:07 Pulse Ox 99 08/01/18 10:07 I&O - Last 24 hours: Intake & Output 07/31/18 08/01/18 08/01/18 22:59 06:59 14:59 Intake Total 600 1140 Output Total 950 Balance 600 190 Lab Results - Last 24 hrs: Laboratory Results - last 24 hr 08/01/18 08/01/18 08/01/18 Range/Units 06:30 06:30 06:30 WBC 9.77 (4.0-11.0) K/uL RBC 3.38 L (4.30-5.90) M/uL Hgb 10.7 L (12.0-16.0) g/dL Hct 33.9 L (36.0-46.0) % MCV 100.3 H (80.0-98.0) fL MCH 31.7 (27.0-32.0) pg MCHC 31.6 (31.0-37.0) g/dL RDW Std Deviation 48.7 (28.0-62.0) fl RDW Coeff of Lorie 13 (11.0-15.0) % Plt Count 248 (150-400) K/uL MPV 10.10 (7.40-12.00) fL Neut % (Auto) 82.7 H (48.0-80.0) % Lymph % (Auto) 11.0 L (16.0-40.0) % [place] % (Auto) 6.1 (0.0-15.0) % Eos % (Auto) 0.1 (0.0-7.0) % Baso % (Auto) 0.1 (0.0-1.5) % Neut # (Auto) 8.1 H (1.4-5.7) K/uL Lymph # (Auto) 1.1 (0.6-2.4) K/uL [place] # (Auto) 0.6 (0.0-0.8) K/uL Eos # (Auto) 0.0 (0.0-0.7) K/uL Baso # (Auto) 0.0 (0.0-0.1) K/uL Nucleated RBC % 0.0 /100WBC Nucleated RBCs # 0 K/uL Sodium 144 (136-145) mmol/L Potassium 3.5 (3.5-5.1) mmol/L Chloride 110 H (98-107) mmol/L Carbon Dioxide 22.4 (21.0-32.0) mmol/L BUN 5 L (7.0-18.0) mg/dL Creatinine 0.9 (0.6-1.0) mg/dL Est Cr Clr Drug Dosing 53.62 mL/min Estimated GFR (MDRD) > 60.0 ml/min Glucose 154 H (74-106) mg/dL Calcium 8.6 (8.5-10.1) mg/dL Vancomycin Trough 6.9 (5.0-10.0) ug/mL SUSIE Results - Last 24 hrs: Microbiology 07/31/18 23:30 Stool Occult Blood (SUSIE) - Final Stool / Feces NEGATIVE OCCULT BLOOD REFERENCE RANGE: NEGATIVE 07/30/18 14:47 Aerobic Blood Culture - Preliminary Blood - Venous NO GROWTH AFTER 1 DAY Anaerobic Blood Culture - Preliminary NO GROWTH AFTER 1 DAY 07/30/18 14:59 Aerobic Blood Culture - Preliminary Blood - Venous - Lab Draw NO GROWTH AFTER 1 DAY Anaerobic Blood Culture - Preliminary NO GROWTH AFTER 1 DAY Med Orders - Current: Current Medications Betamethasone Dipropionate (Diprosone 0.05% Oint) 0 gm TOP BID [facility] Last Admin: 08/01/18 08:51 Dose: 1 applic Piperacillin Sod/Tazobactam (Sod 4.5 gm/ Sodium Chloride) 100 mls @ 100 mls/hr IV Q6H [facility] Last Admin: 08/01/18 11:10 Dose: 100 mls/hr Vancomycin HCl 0.75 gm/ Sodium (Chloride) 250 mls @ 250 mls/hr IV Q12H [facility] Last Admin: 08/01/18 07:27 Dose: 250 mls/hr Morphine Sulfate (Morphine) 2 mg IVPUSH Q2H PRN PRN Reason: Pain Last Admin: 08/01/18 10:50 Dose: 2 mg Nicotine (Habitrol) 21 mg TRDERM DAILY [facility] Last Admin: 08/01/18 08:49 Dose: 21 mg Ondansetron HCl (Zofran) 4 mg IVPUSH Q4H PRN PRN Reason: Nausea Last Admin: 07/30/18 22:48 Dose: 4 mg Vancomycin HCl (Pharmacy To Dose - Vancomycin) 1 dose .XX ASDIRECTED [facility] Discontinued Medications Bisacodyl (Dulcolax) 10 mg PO ONETIME ONE Stop: 07/30/18 18:09 Last Admin: 07/30/18 18:41 Dose: 10 mg Bupivacaine HCl (Marcaine 0.5%) Confirm Administered Dose 30 ml .ROUTE .STK-MED ONE Stop: 07/31/18 07:18 Desflurane (Suprane) Confirm Administered Dose 240 ml .ROUTE .STK-MED ONE Stop: 07/31/18 10:38 Dexamethasone (Dexamethasone) Confirm Administered Dose 20 mg .ROUTE .STK-MED ONE Stop: 07/31/18 10:25 Fentanyl (Sublimaze) Confirm Administered Dose 250 mcg .ROUTE .STK-MED ONE Stop: 07/31/18 07:17 Fentanyl (Sublimaze) 50 mcg IVPUSH Q5M PRN PRN Reason: Pain Last Admin: 07/31/18 11:38 Dose: 50 mcg Glycopyrrolate (Robinul) Confirm Administered Dose 0.2 mg .ROUTE .STK-MED ONE Stop: 07/31/18 10:46 Vancomycin HCl 0.75 gm/ Sodium (Chloride) 100 mls @ 100 mls/hr IV Q12H [facility] Last Admin: 07/31/18 06:05 Dose: 100 mls/hr Sodium Chloride (Normal Saline) 1,000 mls @ 125 mls/hr IV ASDIRECTED [facility] Last Admin: 07/31/18 12:38 Dose: 125 mls/hr Lidocaine HCl (Xylocaine-Mpf 1%) Confirm Administered Dose 5 mls @ as directed .ROUTE .STK-MED ONE Stop: 07/31/18 07:15 Iopamidol (Isovue Multipack-370 (76%)) 55 ml IVPUSH ONETIME STA Stop: 07/30/18 16:12 Last Admin: 07/30/18 16:14 Dose: 55 ml Midazolam HCl (Versed 1 Mg/Ml) Confirm Administered Dose 2 mg .ROUTE .STK-MED ONE Stop: 07/31/18 07:15 Morphine Sulfate (Morphine) 2 mg IVPUSH ONETIME ONE Stop: 07/31/18 16:58 Last Admin: 07/31/18 17:08 Dose: 2 mg Neostigmine Methylsulfate (Neostigmine) Confirm Administered Dose 5 mg .ROUTE .STK-MED ONE Stop: 07/31/18 10:46 Nicotine (Habitrol) 14 mg TRDERM DAILY [facility] Last Admin: 07/30/18 17:08 Dose: 14 mg Ondansetron HCl (Zofran) Confirm Administered Dose 4 mg .ROUTE .STK-MED ONE Stop: 07/31/18 07:15 Phenylephrine HCl (Candido-Synephrine) Confirm Administered Dose 10 mg .ROUTE .STK- MED ONE Stop: 07/31/18 10:20 Polyethylene Glycol (Miralax) 17 gm PO ONETIME ONE Stop: 07/30/18 18:10 Last Admin: 07/30/18 18:42 Dose: 17 gm Prochlorperazine Edisylate (Compazine) Confirm Administered Dose 10 mg .ROUTE .STK-MED ONE Stop: 07/31/18 11:34 Last Admin: 07/31/18 12:44 Dose: Not Given Prochlorperazine Edisylate (Compazine) 5 mg IV ONETIME ONE Stop: 07/31/18 11:46 Last Admin: 07/31/18 11:37 Dose: 5 mg Propofol (Diprivan 20 Ml) Confirm Administered Dose 200 mg .ROUTE .STK-MED ONE Stop: 07/31/18 07:19 Rocuronium [place] (Zemuron) Confirm Administered Dose 100 mg .ROUTE .[facility] Stop: 07/31/18 07:15
--- NOTE | 2018-08-01 10:07 | PCM48HPAN ---
Post Anesthesia Note - EVALUATION WITHIN 48HRS OF ANESTHETIC Vital Signs in Normal Range: Yes Patient Participated in Evaluation: Yes Respiratory Function Stable: Yes Airway Patent: Yes Cardiovascular Function Stable: Yes Hydration Status Stable: Yes Pain Control Satisfactory: Yes Nausea and Vomiting Control Satisfactory: Yes Mental Status Recovered: Yes Pulse Rate: 77 SaO2: 99 Resp Rate: 18 Temperature: 97.4 F Blood Pressure: 131/83
--- NOTE | 2018-08-01 11:57 | PCM.SURGPN ---
- General Info Date of Service: 08/01/18 Date of Surgery/Procedure: 07/31/18 POD#: 1 Functional Status: Reports: Pain Controlled, Tolerating Diet, Ambulating, Urinating - Review of Systems General: Reports: No Symptoms HEENT: Reports: No Symptoms Pulmonary: Reports: No Symptoms Cardiovascular: Reports: No Symptoms Gastrointestinal: Reports: No Symptoms - Patient Data Vitals - Most Recent: Last Vital Signs Temp 36.3 C 08/01/18 10:07 Pulse 77 08/01/18 10:07 Resp 18 08/01/18 10:07 BP 131/83 08/01/18 10:07 Pulse Ox 99 08/01/18 10:07 Weight - Most Recent: 45.416 kg I&O - Last 24 Hours: Intake & Output 07/31/18 08/01/18 08/01/18 22:59 06:59 14:59 Intake Total 600 1140 Output Total 950 Balance 600 190 Lab Results Last 24 Hrs: Laboratory Results - last 24 hr 08/01/18 08/01/18 08/01/18 Range/Units 06:30 06:30 06:30 WBC 9.77 (4.0-11.0) K/uL RBC 3.38 L (4.30-5.90) M/uL Hgb 10.7 L (12.0-16.0) g/dL Hct 33.9 L (36.0-46.0) % MCV 100.3 H (80.0-98.0) fL MCH 31.7 (27.0-32.0) pg MCHC 31.6 (31.0-37.0) g/dL RDW Std Deviation 48.7 (28.0-62.0) fl RDW Coeff of Lorie 13 (11.0-15.0) % Plt Count 248 (150-400) K/uL MPV 10.10 (7.40-12.00) fL Neut % (Auto) 82.7 H (48.0-80.0) % Lymph % (Auto) 11.0 L (16.0-40.0) % [place] % (Auto) 6.1 (0.0-15.0) % Eos % (Auto) 0.1 (0.0-7.0) % Baso % (Auto) 0.1 (0.0-1.5) % Neut # (Auto) 8.1 H (1.4-5.7) K/uL Lymph # (Auto) 1.1 (0.6-2.4) K/uL [place] # (Auto) 0.6 (0.0-0.8) K/uL Eos # (Auto) 0.0 (0.0-0.7) K/uL Baso # (Auto) 0.0 (0.0-0.1) K/uL Nucleated RBC % 0.0 /100WBC Nucleated RBCs # 0 K/uL Sodium 144 (136-145) mmol/L Potassium 3.5 (3.5-5.1) mmol/L Chloride 110 H (98-107) mmol/L Carbon Dioxide 22.4 (21.0-32.0) mmol/L BUN 5 L (7.0-18.0) mg/dL Creatinine 0.9 (0.6-1.0) mg/dL Est Cr Clr Drug Dosing 53.62 mL/min Estimated GFR (MDRD) > 60.0 ml/min Glucose 154 H (74-106) mg/dL Calcium 8.6 (8.5-10.1) mg/dL Vancomycin Trough 6.9 (5.0-10.0) ug/mL [place] Results Last 24 Hrs: Microbiology 07/31/18 23:30 Stool Occult Blood (NAHUM) - Final Stool / Feces NEGATIVE OCCULT BLOOD REFERENCE RANGE: NEGATIVE 07/30/18 14:47 Aerobic Blood Culture - Preliminary Blood - Venous NO GROWTH AFTER 1 DAY Anaerobic Blood Culture - Preliminary NO GROWTH AFTER 1 DAY 07/30/18 14:59 Aerobic Blood Culture - Preliminary Blood - Venous - Lab Draw NO GROWTH AFTER 1 DAY Anaerobic Blood Culture - Preliminary NO GROWTH AFTER 1 DAY Med Orders - Current: Current Medications Betamethasone Dipropionate (Diprosone 0.05% Oint) 0 gm TOP BID [facility] Last Admin: 08/01/18 08:51 Dose: 1 applic Piperacillin Sod/Tazobactam (Sod 4.5 gm/ Sodium Chloride) 100 mls @ 100 mls/hr IV Q6H [facility] Last Admin: 08/01/18 11:10 Dose: 100 mls/hr Vancomycin HCl 0.75 gm/ Sodium (Chloride) 250 mls @ 250 mls/hr IV Q12H [facility] Last Admin: 08/01/18 07:27 Dose: 250 mls/hr Morphine Sulfate (Morphine) 2 mg IVPUSH Q2H PRN PRN Reason: Pain Last Admin: 08/01/18 11:52 Dose: 2 mg Nicotine (Habitrol) 21 mg TRDERM DAILY [facility] Last Admin: 08/01/18 08:49 Dose: 21 mg Ondansetron HCl (Zofran) 4 mg IVPUSH Q4H PRN PRN Reason: Nausea Last Admin: 07/30/18 22:48 Dose: 4 mg Vancomycin HCl (Pharmacy To Dose - Vancomycin) 1 dose .XX ASDIRECTED [facility] Discontinued Medications Bisacodyl (Dulcolax) 10 mg PO ONETIME ONE Stop: 07/30/18 18:09 Last Admin: 07/30/18 18:41 Dose: 10 mg Bupivacaine HCl (Marcaine 0.5%) Confirm Administered Dose 30 ml .ROUTE .STK-MED ONE Stop: 07/31/18 07:18 Desflurane (Suprane) Confirm Administered Dose 240 ml .ROUTE .STK-MED ONE Stop: 07/31/18 10:38 Dexamethasone (Dexamethasone) Confirm Administered Dose 20 mg .ROUTE .STK-MED ONE Stop: 07/31/18 10:25 Fentanyl (Sublimaze) Confirm Administered Dose 250 mcg .ROUTE .STK-MED ONE Stop: 07/31/18 07:17 Fentanyl (Sublimaze) 50 mcg IVPUSH Q5M PRN PRN Reason: Pain Last Admin: 07/31/18 11:38 Dose: 50 mcg Glycopyrrolate (Robinul) Confirm Administered Dose 0.2 mg .ROUTE .STK-MED ONE Stop: 07/31/18 10:46 Vancomycin HCl 0.75 gm/ Sodium (Chloride) 100 mls @ 100 mls/hr IV Q12H [facility] Last Admin: 07/31/18 06:05 Dose: 100 mls/hr Sodium Chloride (Normal Saline) 1,000 mls @ 125 mls/hr IV ASDIRECTED [facility] Last Admin: 07/31/18 12:38 Dose: 125 mls/hr Lidocaine HCl (Xylocaine-Mpf 1%) Confirm Administered Dose 5 mls @ as directed .ROUTE .STK-MED ONE Stop: 07/31/18 07:15 Iopamidol (Isovue Multipack-370 (76%)) 55 ml IVPUSH ONETIME STA Stop: 07/30/18 16:12 Last Admin: 07/30/18 16:14 Dose: 55 ml Midazolam HCl (Versed 1 Mg/Ml) Confirm Administered Dose 2 mg .ROUTE .STK-MED ONE Stop: 07/31/18 07:15 Morphine Sulfate (Morphine) 2 mg IVPUSH ONETIME ONE Stop: 07/31/18 16:58 Last Admin: 07/31/18 17:08 Dose: 2 mg Neostigmine Methylsulfate (Neostigmine) Confirm Administered Dose 5 mg .ROUTE .STK-MED ONE Stop: 07/31/18 10:46 Nicotine (Habitrol) 14 mg TRDERM DAILY [facility] Last Admin: 07/30/18 17:08 Dose: 14 mg Ondansetron HCl (Zofran) Confirm Administered Dose 4 mg .ROUTE .STK-MED ONE Stop: 07/31/18 07:15 Phenylephrine HCl (Candido-Synephrine) Confirm Administered Dose 10 mg .ROUTE .STK- MED ONE Stop: 07/31/18 10:20 Polyethylene Glycol (Miralax) 17 gm PO ONETIME ONE Stop: 07/30/18 18:10 Last Admin: 07/30/18 18:42 Dose: 17 gm Prochlorperazine Edisylate (Compazine) Confirm Administered Dose 10 mg .ROUTE .STK-MED ONE Stop: 07/31/18 11:34 Last Admin: 07/31/18 12:44 Dose: Not Given Prochlorperazine Edisylate (Compazine) 5 mg IV ONETIME ONE Stop: 07/31/18 11:46 Last Admin: 07/31/18 11:37 Dose: 5 mg Propofol (Diprivan 20 Ml) Confirm Administered Dose 200 mg .ROUTE .STK-MED ONE Stop: 07/31/18 07:19 Rocuronium [place] (Zemuron) Confirm Administered Dose 100 mg .ROUTE .STK-MED ONE Stop: 07/31/18 07:15 - Exam Wound/Incisions: Healing Well, Dressing Dry and Intact General: Alert, Oriented, Cooperative HEENT: Pupils Equal, Pupils Reactive Lungs: Normal Respiratory Effort Cardiovascular: Regular Rate GI/Abdominal Exam: Soft, Non-Tender, No Distention, No Mass - Problem List & Annotations (1) Acute cholecystitis without calculus SNOMED Code(s): 68564750 Code(s): K81.0 - ACUTE CHOLECYSTITIS Status: Acute Current Visit: Yes - Problem List Review Problem List Initiated/Reviewed/Updated: Yes - My Orders Last 24 Hours: Active Orders 24 hr Category Date Time Status Fecal Occult Blood Collection [RC] ASDIRECTED Care 07/31/18 23:39 Active Ready for Discharge [RC] PER UNIT ROUTINE Care 08/01/18 08:36 Active Low Fat Diet [DIET] Diet 08/01/18 Lunch Active Betamethasone Dipropionate [Diprosone 0.05% Oint] Med 07/31/18 17:00 Active See Dose Instructions TOP BID Vancomycin 0.75 gm Med 07/31/18 19:00 Active Sodium Chloride 0.9% [Normal Saline] 250 ml IV Q12H Medication Orders Betamethasone Dipropionate (Diprosone 0.05% Oint) 0 gm TOP BID [facility] Last Admin: 08/01/18 08:51 Dose: 1 applic Admin: 07/31/18 20:39 Dose: 1 applic Admin: 07/31/18 18:35 Dose: 1 applic Piperacillin Sod/Tazobactam (Sod 4.5 gm/ Sodium Chloride) 100 mls @ 100 mls/hr IV Q6H [facility] Last Admin: 08/01/18 11:10 Dose: 100 mls/hr Infusion: 08/01/18 04:59 Dose: 100 mls/hr Admin: 08/01/18 03:59 Dose: 100 mls/hr Infusion: 07/31/18 23:07 Dose: 100 mls/hr Admin: 07/31/18 22:07 Dose: 100 mls/hr Infusion: 07/31/18 16:43 Dose: 100 mls/hr Admin: 07/31/18 15:43 Dose: 100 mls/hr Admin: 07/31/18 12:44 Dose: Infusion: 07/31/18 06:05 Dose: 100 mls/hr Admin: 07/31/18 05:05 Dose: 100 mls/hr Infusion: 07/30/18 23:41 Dose: 100 mls/hr Admin: 07/30/18 22:41 Dose: 100 mls/hr Infusion: 07/30/18 18:15 Dose: 100 mls/hr Admin: 07/30/18 17:15 Dose: 100 mls/hr Vancomycin HCl 0.75 gm/ Sodium (Chloride) 250 mls @ 250 mls/hr IV Q12H [facility] Last Admin: 08/01/18 07:27 Dose: 250 mls/hr Infusion: 07/31/18 19:28 Dose: 250 mls/hr Admin: 07/31/18 18:28 Dose: 250 mls/hr Morphine Sulfate (Morphine) 2 mg IVPUSH Q2H PRN PRN Reason: Pain Last Admin: 08/01/18 11:52 Dose: 2 mg Admin: 08/01/18 10:50 Dose: 2 mg Admin: 08/01/18 07:15 Dose: 2 mg Admin: 08/01/18 03:54 Dose: 2 mg Admin: 07/31/18 23:20 Dose: 2 mg Admin: 07/31/18 20:31 Dose: 2 mg Admin: 07/31/18 16:00 Dose: 2 mg Admin: 07/31/18 13:45 Dose: 2 mg Admin: 07/31/18 05:05 Dose: 2 mg Admin: 07/31/18 02:56 Dose: 2 mg Admin: 07/31/18 00:48 Dose: 2 mg Admin: 07/30/18 22:40 Dose: 2 mg Nicotine (Habitrol) 21 mg TRDERM DAILY [facility] Last Admin: 08/01/18 08:49 Dose: 21 mg Admin: 07/31/18 09:37 Dose: Admin: 07/30/18 18:43 Dose: 21 mg Ondansetron HCl (Zofran) 4 mg IVPUSH Q4H PRN PRN Reason: Nausea Last Admin: 07/30/18 22:48 Dose: 4 mg Vancomycin HCl (Pharmacy To Dose - Vancomycin) 1 dose .XX ASDIRECTED [facility] - Plan Plan (Free Text/Narrative):: -Dressings can be removed tomorrow. Ok to shower after that. -There are steri-strips over the incisions. Leave these in place for one week. If they fall off before then no need to remove. -No lifting >20lb for four weeks. -Follow up in clinic in 2 weeks. -Ok to advance diet to regular -Ok to discharge to home. Call with questions
[2018-08-01] MEDS ORDERED: Morphine 15 MG Tab PO PRN (12:40)
[2018-08-01 14:13] VITALS: BP 139/88
[2018-08-01] MEDS: Ondansetron 4 MG/2 ML SDV IVPUSH PRN (14:29)
== END 2018-08-01 15:00 | disposition home or self-care (01) | DRG 418 ==
LOC: MW.NM 11:22 → MW.MS 07-30 14:12
PROVIDERS: ADMIT Internal Medicine; ATTEND Internal Medicine
PROC: 0FT44ZZ Resection of Gallbladder, Percutaneous Endoscopic Approach (ICD-10-PCS; principal; 2018-07-31)
DX: K81.0 Acute cholecystitis (principal); L03.113 Cellulitis of right upper limb; K59.00 Constipation, unspecified; J45.909 Unspecified asthma, uncomplicated; F32.9 Major depressive disorder, single episode, unspecified; F17.210 Nicotine dependence, cigarettes, uncomplicated; Z88.8 Allergy status to other drugs, medicaments and biological substances; Z79.899 Other long term (current) drug therapy
CPT/HCPCS: 36415; 71046; 71046-26; 73201-26-RT; 73201-RT; 74177; 74177-26; 78227; 78227-26; 80048; 80053; 80202; 82272; 84484; 85025; 85027; 85652; 86140; 87040; 93005; A9270-GY; A9537; J0780; J1100; J2001; J2250; J2270; J2370; J2405; J2543; J2704; J2805; J3010; J3370; J3490; J7030; J7040; J7050; Q9967

== ENCOUNTER 2018-11-05 20:23 | Emergency (ER) | payer MEDICAID, OTHER ==
[2018-11-05] MEDS ORDERED: Aspirin 81 MG Tab.Chew PO ONE (20:26)
[2018-11-05] MEDS ORDERED: Sodium Chloride 0.9% 2.5 ML Syringe FLUSH PRN (20:26)
[2018-11-05] MEDS ORDERED: Sodium Chloride 0.9% 10 ML Syringe FLUSH PRN (20:26)
--- NOTE | 2018-11-05 20:31 | EDM.PDOC ---
ED HPI GENERAL MEDICAL PROBLEM - General Chief Complaint: Chest Pain Stated Complaint: CHEST PAIN Time Seen by Provider: 11/05/18 20:26 Source of Information: Reports: Patient History Limitations: Reports: No Limitations - History of Present Illness INITIAL COMMENTS - FREE TEXT/NARRATIVE: HISTORY AND PHYSICAL: History of present illness: Patient is a 53-year-old female who presents to the emergency room today with complaints of chest pain that started around 7 PM. Patient reports that ever since getting her gallbladder removed in July 2018, she's had problems with indigestion and various vague abdominal complaints. This evening when her chest pain started she thought maybe it was indigestion but was not alleviated after a few minutes of rest. Has sensation of abdominal fullness as she hasn't had a bowel movement in a few days, which is unusual for her as she usually has diarrhea. States when she was ambulating in and around her house she had some shortness of breath. Patient denies any fever, chills, headache, change in vision, syncope or near syncope. Denies any neck pain/stiffness or cough. Denies any abdominal pain, nausea, vomiting, diarrhea or dysuria. Has not noted any blood in urine or stool. Patient has been eating and drinking appropriately. Review of systems: As per history of present illness and below otherwise all systems reviewed and negative. Past medical history: As per history of present illness and as reviewed below otherwise noncontributory. Surgical history: As per history of present illness and as reviewed below otherwise noncontributory. Social history: See social history for further information Family history: As per history of present illness and as reviewed below otherwise noncontributory. Physical exam: General: Well-developed and well-nourished 53-year-old female. Alert and oriented. Nontoxic appearing and in no acute distress. HEENT: Atraumatic, normocephalic, pupils equal and reactive bilaterally, negative for conjunctival pallor or scleral icterus, mucous membranes moist, trachea midline. No drooling or trismus noted. No meningeal signs. No hot potato voice noted. Lungs: Clear to auscultation, breath sounds equal bilaterally, chest nontender. Heart: S1S2, regular rate and rhythm without overt murmur Abdomen: Soft, nondistended, nontender. Negative for masses. Negative for costovertebral tenderness. Skin: Intact, warm, dry. No lesions or rashes noted. Extremities: Atraumatic, moves all extremities per self without difficulty or deficits, negative for cords or calf pain. Neurovascular unremarkable. Neuro: Awake, alert, oriented. Cranial nerves II through XII unremarkable. Cerebellum unremarkable. Motor and sensory unremarkable throughout. Exam nonfocal. Notes: EKG shows a normal sinus rhythm with a rate of 98. Lab work is unremarkable. X- ray of chest and abdomen are unremarkable. Admission was offered, she declines. Risks versus benefits were reviewed and discussed. Patient continues to decline. She states she is chest pain free. We discussed following up with Dr. Saravia, as she reports she has had a lot of bloating and generalized abdominal discomfort since her gallbladder removal in July. Supportive care measures were reviewed and discussed. Voices understanding and is agreeable to plan of care. Denies any further questions or concerns at this time. Diagnostics: CBC, CMP, troponin, EKG, chest x-ray, abdominal film Therapeutics: Saline lock, aspirin, GI cocktail Prescription: None Impression: Chest pain Plan: 1. Please use Tylenol and/or Ibuprofen as needed for pain and fever management. 2. Get plenty of Rest. Encourage fluids to prevent dehydration. 3. Please follow up with your primary care provider and/or Dr Saravia as we discussed. Return to the ED as needed as discussed. Definitive disposition and diagnosis as appropriate pending reevaluation and review of above. chest Pain Score (Numeric/FACES): 10 - Related Data Allergies Allergy/AdvReac Type Severity Reaction Status Date / Time hydromorphone [From Dilaudid] Allergy Change Verified 11/05/18 20:38 Mental Status Home Meds: Home Meds Albuterol Sulfate [Albuterol Sulfate Hfa] 1 puff INH ASDIRECTED 11/05/18 [ History] Past Medical History HEENT History: Reports: None Cardiovascular History: Reports: Other (See Below) Other Cardiovascular History: states she had a heart attack at age 32 Respiratory History: Reports: Asthma, SOB Gastrointestinal History: Reports: None, Cholelithiasis Genitourinary History: Reports: None TECHNOLOGY INTEGRATION SPECIALIST History: Reports: Other TECHNOLOGY INTEGRATION SPECIALIST History: C- Section, Ovaraian Cyst Aspiration and tubal ligation Musculoskeletal History: Reports: None Neurological History: Reports: None Psychiatric History: Reports: Depression Endocrine/Metabolic History: Reports: None Hematologic History: Reports: None Immunologic History: Reports: None Oncologic (Cancer) History: Reports: None Dermatologic History: Reports: Cellulitis - Infectious Disease History Infectious Disease History: Reports: Chicken Pox, Measles, Meningitis - Past Surgical History Head Surgeries/Procedures: Reports: None Cardiovascular Surgical History: Reports: None Respiratory Surgical History: Reports: None GI Surgical History: Reports: None Endocrine Surgical History: Reports: None Musculoskeletal Surgical History: Reports: None Social & Family History - Family History Family Medical History: Noncontributory - Caffeine Use Caffeine Use: Reports: Coffee ED ROS GENERAL - Review of Systems Review Of Systems: ROS reveals no pertinent complaints other than HPI. ED EXAM, GENERAL - Physical Exam Exam: See Below (See dictation) Course - Vital Signs Last Recorded V/S: Last Vital Signs Temp 97.4 F 11/05/18 20:23 Pulse 102 H 11/05/18 20:23 Resp 20 11/05/18 20:23 BP 120/77 11/05/18 20:23 Pulse Ox 18 L 11/05/18 20:23 - Orders/Labs/Meds Orders: Active Orders 24 hr Category Date Time Status EKG Documentation Completion [RC] STAT Care 11/05/18 20:26 Active GI Cocktail with Reglan 25 ML PO x 1 Med 11/05/18 21:46 Ordered Alum Hydrox/Mag Hydrox/Simeth [Mag-Al Plus] 15 ml Metoclopramide [Reglan] 5 mg Lidocaine 2% [Xylocaine 2% Viscous] 5 ml PO ONETIME Sodium Chloride 0.9% [Saline Flush] Med 11/05/18 20:26 Active 10 ml FLUSH ASDIRECTED PRN Sodium Chloride 0.9% [Saline Flush] Med 11/05/18 20:26 Active 2.5 ml FLUSH ASDIRECTED PRN Saline Lock Insert [OM.PC] Stat Oth 11/05/18 20:26 Ordered Medication Orders Al Hydroxide/Mg Hydroxide 15 ml/ Metoclopramide HCl 5 mg/Lidocaine HCl 5 ml 0 ml PO ONETIME ONE Stop: 11/05/18 21:47 Sodium Chloride (Saline Flush) 10 ml FLUSH ASDIRECTED PRN PRN Reason: Keep Vein Open Last Admin: 11/05/18 20:41 Dose: 10 ml Sodium Chloride (Saline Flush) 2.5 ml FLUSH ASDIRECTED PRN PRN Reason: Keep Vein Open Last Admin: 11/05/18 20:41 Dose: 2.5 ml Labs: Laboratory Tests 11/05/18 11/05/18 Range/Units 20:30 20:30 WBC 9.90 (4.0-11.0) K/uL RBC 4.61 (4.30-5.90) M/uL Hgb 14.4 (12.0-16.0) g/dL Hct 43.8 (36.0-46.0) % MCV 95.0 (80.0-98.0) fL MCH 31.2 (27.0-32.0) pg MCHC 32.9 (31.0-37.0) g/dL RDW Std Deviation 49.3 (28.0-62.0) fl RDW Coeff of Lorie 14 (11.0-15.0) % Plt Count 298 (150-400) K/uL MPV 10.20 (7.40-12.00) fL Neut % (Auto) 58.6 (48.0-80.0) % Lymph % (Auto) 34.8 (16.0-40.0) % [place] % (Auto) 4.9 (0.0-15.0) % Eos % (Auto) 1.5 (0.0-7.0) % Baso % (Auto) 0.2 (0.0-1.5) % Neut # (Auto) 5.8 H (1.4-5.7) K/uL Lymph # (Auto) 3.5 H (0.6-2.4) K/uL [place] # (Auto) 0.5 (0.0-0.8) K/uL Eos # (Auto) 0.2 (0.0-0.7) K/uL Baso # (Auto) 0.0 (0.0-0.1) K/uL Nucleated RBC % 0.0 /100WBC Nucleated RBCs # 0 K/uL Sodium 145 (136-145) mmol/L Potassium 3.9 (3.5-5.1) mmol/L Chloride 110 H (98-107) mmol/L Carbon Dioxide 24.1 (21.0-32.0) mmol/L BUN 9 (7.0-18.0) mg/dL Creatinine 0.6 (0.6-1.0) mg/dL Est Cr Clr Drug Dosing TNP Estimated GFR (MDRD) > 60.0 ml/min Glucose 99 (74-106) mg/dL Calcium 8.6 (8.5-10.1) mg/dL Total Bilirubin 0.2 (0.2-1.0) mg/dL AST 11 L (15-37) IU/L ALT 19 (14-63) IU/L Alkaline Phosphatase 77 (46-116) U/L Troponin I < 0.050 (0.000-0.056) ng/mL Total Protein 6.4 (6.4-8.2) g/dL Albumin 3.5 (3.4-5.0) g/dL Globulin 2.9 (2.6-4.0) g/dL Albumin/Globulin Ratio 1.2 (0.9-1.6) Meds: Medications Generic Name Dose Route Start Last Admin Trade Name Freq PRN Reason Stop Dose Admin Al Hydroxide/Mg Hydroxide 15 0 ml 11/05/18 21:46 ml/ Metoclopramide HCl 5 mg/ PO 11/05/18 21:47 Lidocaine HCl 5 ml ONETIME ONE Sodium Chloride 10 ml 11/05/18 20:26 11/05/18 20:41 Saline Flush FLUSH 10 ml ASDIRECTED PRN Administration Keep Vein Open Sodium Chloride 2.5 ml 11/05/18 20:26 11/05/18 20:41 Saline Flush FLUSH 2.5 ml ASDIRECTED PRN Administration Keep Vein Open Discontinued Medications Generic Name Dose Route Start Last Admin Trade Name Freq PRN Reason Stop Dose Admin Aspirin 324 mg 11/05/18 20:26 11/05/18 20:41 Aspirin PO 11/05/18 20:27 324 mg ONETIME ONE Administration Departure - Departure Time of Disposition: 21:48 Disposition: Home, Self-Care 01 Clinical Impression: Chest pain Qualifiers: Chest pain type: unspecified Qualified Code(s): R07.9 - Chest pain, unspecified Instructions: Nonspecific Chest Pain, Prka-[id number] Forms: ED Department Discharge Additional Instructions: The following information is given to patients seen in the emergency department who are being discharged to home. This information is to outline your options for follow-up care. We provide all patients seen in our emergency department with a follow-up referral. The need for follow-up, as well as the timing and circumstances, are variable depending upon the specifics of your emergency department visit. If you don't have a primary care physician on staff, we will provide you with a referral. We always advise you to contact your personal physician following an emergency department visit to inform them of the circumstance of the visit and for follow-up with them and/or the need for any referrals to a consulting specialist. The emergency department will also refer you to a specialist when appropriate. This referral assures that you have the opportunity for follow-up care with a specialist. All of these measure are taken in an effort to provide you with optimal care, which includes your follow-up. Under all circumstances we always encourage you to contact your private physician who remains a resource for coordinating your care. When calling for follow-up care, please make the office aware that this follow-up is from your recent emergency room visit. If for any reason you are refused follow-up, please contact the [facility] Emergency Department at and asked to speak to the emergency department charge nurse. [facility] [address] [place] [id number] [place] [address] 1. Please use Tylenol and/or Ibuprofen as needed for pain and fever management. 2. Get plenty of Rest. Encourage fluids to prevent dehydration. 3. Please follow up with your primary care provider and/or Dr Saravia as we discussed. Return to the ED as needed as discussed. - My Orders Last 24 Hours: My Active Orders 11/05/18 20:26 EKG Documentation Completion [RC] STAT Sodium Chloride 0.9% [Saline Flush] 10 ml FLUSH ASDIRECTED PRN Sodium Chloride 0.9% [Saline Flush] 2.5 ml FLUSH ASDIRECTED PRN Saline Lock Insert [OM.PC] Stat 11/05/18 21:46 GI Cocktail with Reglan 25 ML PO x 1 Alum Hydrox/Mag Hydrox/Simeth [Mag-Al Plus ] 15 ml Metoclopramide [Reglan] 5 mg Lidocaine 2% [Xylocaine 2% Viscous] 5 ml PO ONETIME - Assessment/Plan Last 24 Hours: My Active Orders 11/05/18 20:26 EKG Documentation Completion [RC] STAT Sodium Chloride 0.9% [Saline Flush] 10 ml FLUSH ASDIRECTED PRN Sodium Chloride 0.9% [Saline Flush] 2.5 ml FLUSH ASDIRECTED PRN Saline Lock Insert [OM.PC] Stat 11/05/18 21:46 GI Cocktail with Reglan 25 ML PO x 1 Alum Hydrox/Mag Hydrox/Simeth [Mag-Al Plus ] 15 ml Metoclopramide [Reglan] 5 mg Lidocaine 2% [Xylocaine 2% Viscous] 5 ml PO ONETIME
--- NOTE | 2018-11-05 20:45 | CR ---
Indication: Chest Technique: Chest 1 view Comparison: July 30, 2018 Findings/Impression: Cardiovascular and mediastinum: Heart size and vasculature are normal in caliber and appearance. Mediastinum is within normal limits. Lungs and pleural space: Lungs are clear. No sign of infiltrate or mass. No sign of pleural effusion. No pneumothorax. Bones and soft tissues: No significant findings. Dictated by Renate Weston MD @ Nov 05 2018 8:43PM Signed by Dr. Renate Weston @ Nov 05 2018 8:44PM
[2018-11-05 21:07] LABS: CHLORIDE,CL 110 mmol/L (98-107); SODIUM,NA 145 mmol/L (136-145)
--- NOTE | 2018-11-05 21:37 | CR ---
INDICATION: Constipation TECHNIQUE: Abdominal radiograph 3 views COMPARISON: None FINDINGS: Bowel: The bowel gas pattern is normal without evidence of bowel obstruction. Soft tissue: No evidence of pneumoperitoneum present. Numerous bilateral phleboliths are noted. Surgical clips are noted in the right upper quadrant from prior cholecystectomy. Bone: Unremarkable for age. IMPRESSION: 1. Unremarkable appearance of the visualized abdomen. Dictated by: Ranjan Batista MD @ 11/05/2018 21:35:51 (Electronically Signed)
[2018-11-05] MEDS ORDERED: Alum Hydrox/Mag Hydrox/Simeth 15 ML, Metoclopramide 5 MG, Lidocaine 2% 5 ML PO ONE ×3 (21:46)
[2018-11-05 22:18] VITALS: BP 90/65
== END 2018-11-05 22:00 | disposition home or self-care (01) ==
LOC: MW.ED 20:23
DX: R07.9 Chest pain, unspecified (principal); J45.909 Unspecified asthma, uncomplicated; Z88.5 Allergy status to narcotic agent; Z79.899 Other long term (current) drug therapy
CPT/HCPCS: 36415; 71045; 74019; 80053; 84484; 85025; 93005; 99285; A9270

== ENCOUNTER 2019-11-22 13:50 | Emergency (ER) | payer MEDICAID ==
[2019-11-22] MEDS ORDERED: predniSONE 20 MG Tab PO ONE (14:09)
--- NOTE | 2019-11-22 14:09 | EDM.PDOC ---
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 She does report a history of asthma and she also does still smoke. She has been using her albuterol inhaler very frequently and has now run out. She does not have a primary care doctor and has not been prescribed any other inhaled steroids or long-acting beta agonist. Review of systems: As per history of present illness and below otherwise all systems reviewed and negative. Past medical history: As per history of present illness and as reviewed below otherwise noncontributory. Asthma Surgical history: As per history of present illness and as reviewed below otherwise noncontributory. Social history: No reported history of drug or alcohol abuse. Daily tobacco Family history: As per history of present illness and as reviewed below otherwise noncontributory. Physical exam: GEN: no acute distress, well appearing HEENT: Atraumatic, normocephalic, mucous membranes moist, Neck: supple, nontender, trachea midline. Lungs: No respiratory distress. No expiratory wheezes but does have some decreased air movement. No rhonchi or rales. Heart: RRR Abdomen: Soft, nondistended, nontender. Back: nontender Extremities: Atraumatic. Neurovascularly intact. Neuro: Awake, alert, oriented. Neuro Exam nonfocal. Skin: warm, dry, no lesions Diagnostics: [] Therapeutics: [] MDM: Impression: [] Plan: [] Definitive disposition and diagnosis as appropriate pending reevaluation and review of above. - Related Data Allergies Allergy/AdvReac Type Severity Reaction Status Date / Time hydromorphone [From Dilaudid] Allergy Change Verified 11/22/19 14:07 Mental Status Home Meds: Home Meds Albuterol Sulfate [Albuterol Sulfate Hfa] 2 puff INH ASDIRECTED 11/05/18 [History] Albuterol Sulfate [Proair Respiclick] 90 mcg IH Q6HR PRN #1 canister 09/12/20 [Rx] Fluticasone Propion/Salmeterol [Fluticasone-Salmeterol 100-50] 1 each IH BID #1 blst.w.dev 11/22/19 [Rx] predniSONE [Prednisone] 60 mg PO DAILY 5 Days #15 tablet 11/22/19 [Rx] Past Medical History HEENT History: Reports: None Cardiovascular History: Reports: Other (See Below) Other Cardiovascular History: states she had a heart attack at age 32 Respiratory History: Reports: Asthma, SOB Gastrointestinal History: Reports: None, Cholelithiasis Genitourinary History: Reports: None 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 RETURN CLERK History: C- Section, Ovaraian Cyst Aspiration and tubal ligation Musculoskeletal History: Reports: None Neurological History: Reports: None Psychiatric History: Reports: Depression Endocrine/Metabolic History: Reports: None Hematologic History: Reports: None Immunologic History: Reports: None Oncologic (Cancer) History: Reports: None Dermatologic History: Reports: Cellulitis - Infectious Disease History Infectious Disease History: Reports: Chicken Pox, Measles, Meningitis - Past Surgical History Head Surgeries/Procedures: Reports: None Cardiovascular Surgical History: Reports: None Respiratory Surgical History: Reports: None GI Surgical History: Reports: None Endocrine Surgical History: Reports: None Musculoskeletal Surgical History: Reports: None Social & Family History - Family History Family Medical History: Noncontributory - Caffeine Use Caffeine Use: Reports: Coffee ED ROS GENERAL - Review of Systems Review Of Systems: See Below (See HPI) ED EXAM, GENERAL - Physical Exam Exam: See Below (See HPI) Course - Vital Signs Text/Narrative:: Difficulty breathing, somewhat chronic for months. History of asthma and also still smoking. Has never been on a long-acting beta agonist or inhaled steroid, only albuterol rescue inhaler which she has now run out of. Chest x-ray shows no pneumonia. No hypoxia. Given DuoNeb nebulizer treatment here and much improved. Will discharge with short course of steroids, inhaled glucocorticoids/long-acting beta agonist, and albuterol rescue inhaler prescriptions and discussed with the patient that she needs to follow-up with a primary care physician. Patient's blood pressure is low, however she is very small and is not showing any signs or symptoms of hypotension. Repeat blood pressure at time of discharge was 112 systolic. Last Recorded V/S: Last Vital Signs Temp 97.7 F 11/22/19 13:59 Pulse 82 11/22/19 16:18 Resp 14 11/22/19 16:18 BP 119/72 11/22/19 16:18 Pulse Ox 96 11/22/19 16:18 - Orders/Labs/Meds Orders: Active Orders 24 hr Category Date Time Status RT Aerosol Therapy [RC] ASDIRECTED Care 11/22/19 15:31 Active Meds: Medications Discontinued Medications Generic Name Dose Route Start Last Admin Trade Name Juan Luis PRN Reason Stop Dose Admin Albuterol/Ipratropium 3 ml 11/22/19 15:31 11/22/19 15:44 Duoneb 3.0-0.5 Mg/3 Ml NEB 11/22/19 15:32 3 ml ONETIME ONE Administration Prednisone 60 mg 11/22/19 14:09 11/22/19 14:38 Prednisone PO 11/22/19 14:10 60 mg ONETIME ONE Administration - Re-Assessments/Exams Free Text/Narrative Re-Assessment/Exam: 11/22/19 15:32 The patient is not feeling much better after the prednisone. Still reports that she feels "like crap" and still having difficulty breathing. Discussed results and plan of care. Will order nebulizer treatment here. 11/22/19 15:56 The patient now feels much better after having received the nebulizer. Shortness of breath is much improved. Will discharge. Departure - Departure Time of Disposition: 15:58 Disposition: Home, Self-Care 01 Clinical Impression: Acute asthma exacerbation Qualifiers: Asthma severity: moderate Asthma persistence: persistent Qualified Code(s): J45.41 - Moderate persistent asthma with (acute) exacerbation - Discharge Information Prescriptions: Fluticasone Propion/Salmeterol [Fluticasone-Salmeterol 100-50] 1 each IH BID #1 blst.w.dev predniSONE [Prednisone] 60 mg PO DAILY 5 Days #15 tablet Albuterol Sulfate [Proair Respiclick] 90 mcg IH Q6HR PRN #1 canister PRN Reason: Dyspnea Instructions: Steps to Quit Smoking, [id number], Asthma, Adult, Bronchospasm, Adult, Cough, Adult, [id number], Metered Dose Inhaler (No Spacer Used), How to Use a Metered Dose Inhaler, Form - Asthma Action Plan, Adult, Asthma, Adult, [id number], How to Use a Dry Powder Inhaler, [id number], Asthma Attack Prevention, Adult, Asthma and Physical Activity Referrals: PCP,None [Primary Care Provider] - Forms: ED Department Discharge Additional Instructions: The following information is given to patients seen in the emergency department who are being discharged to home. This information is to outline your options for follow-up care. We provide all patients seen in our emergency department with a follow-up referral. The need for follow-up, as well as the timing and circumstances, are variable depending upon the specifics of your emergency department visit. If you don't have a primary care physician on staff, we will provide you with a referral. We always advise you to contact your personal physician following an emergency department visit to inform them of the circumstance of the visit and for follow-up with them and/or the need for any referrals to a consulting specialist. The emergency department will also refer you to a specialist when appropriate. This referral assures that you have the opportunity for follow-up care with a specialist. All of these measure are taken in an effort to provide you with optimal care, which includes your follow-up. Under all circumstances we always encourage you to contact your private physician who remains a resource for coordinating your care. When calling for follow-up care, please make the office aware that this follow-up is from your recent emergency room visit. If for any reason you are refused follow-up, please contact the [facility] Emergency Department at and asked to speak to the emergency department charge nurse. [facility] [address] [place] [id number] [facility] [address] [place] [id number] Sepsis Event Note (ED) - Evaluation Sepsis Screening Result: No Definite Risk - Focused Exam Vital Signs: Vital Signs Temp Pulse Resp BP Pulse Ox 11/22/19 16:18 82 14 119/72 96 11/22/19 13:59 97.7 F 93 24 H 76/44 L 99 - My Orders Last 24 Hours: My Active Orders 11/22/19 15:31 RT Aerosol Therapy [RC] ASDIRECTED - Assessment/Plan Last 24 Hours: My Active Orders 11/22/19 15:31 RT Aerosol Therapy [RC] ASDIRECTED
--- NOTE | 2019-11-22 15:00 | CR ---
Chest: 2 views of the chest were obtained. Comparison: Prior chest x-ray of 11/05/18. Heart size and mediastinum are normal. Lung markings are slightly increased which is felt to be accentuated from technique. Lungs are felt to be clear with no acute parenchymal change. Slight pectus excavatum deformity is seen. Bony structures are otherwise unremarkable. Impression: 1. Nothing acute is seen on frontal chest x-ray. Diagnostic code #2 This report was dictated in MDT
[2019-11-22] MEDS ORDERED: Albuterol/Ipratropium 3.0-0.5 MG/3 ML Neb Soln NEB ONE (15:31)
[2019-11-22 16:19] VITALS: BP 119/72; PULSE 82
== END 2019-11-22 16:19 | disposition home or self-care (01) ==
LOC: MW.ED 13:50
DX: J45.41 Moderate persistent asthma with (acute) exacerbation (principal); F17.200 Nicotine dependence, unspecified, uncomplicated; Z98.51 Tubal ligation status; Z88.5 Allergy status to narcotic agent; Z79.899 Other long term (current) drug therapy
CPT/HCPCS: 71046; 94640; 99285; A9270; 99283; J7620-GY

== ENCOUNTER 2020-07-01 07:36 | Day surgery (SDC) | payer MEDICAID ==
[~2020-07-01 07:36] MED LIST: Lactated Ringers 1,000 ML IV SCH; Propofol 200 MG/20 ML SDV ONE; Sodium Chloride 0.9% 10 ML SDV IV PRN; Sodium Chloride 0.9% 10 ML Syringe FLUSH PRN; Sodium Chloride 0.9% 2.5 ML Syringe FLUSH PRN
--- NOTE | 2020-07-01 08:25 | PCM.PREANE ---
Preanesthetic Assessment - Anesthesia/Transfusion/Family Hx Anesthesia History: Prior Anesthesia Without Reaction Other Type of Anesthesia Reaction Comment: has had panic attacks when waking up- requests O2 Family History of Anesthesia Reaction: No Transfusion History: Prior Transfusion Without Reaction - Review of Systems General: No Symptoms Pulmonary: No Symptoms Cardiovascular: No Symptoms Gastrointestinal: No Symptoms Neurological: No Symptoms Other: Reports: None - Physical Assessment NPO Status Date: 07/01/20 NPO Status Time: 00:01 Height: 4 ft 10 in Weight: 121 lb ASA Class: 3 Mental Status: Alert & Oriented x3 Airway Class: Mallampati = 2 Dentition: Reports: Normal Dentition ROM/Head Extension: Full Lungs: Clear to Auscultation, Normal Respiratory Effort Cardiovascular: Regular Rate, Regular Rhythm - Allergies Allergies/Adverse Reactions: Allergies Allergy/AdvReac Type Severity Reaction Status Date / Time hydromorphone [From Dilaudid] Allergy Change Verified 06/25/20 13:02 Mental Status - Anesthesia Plan Pre-Op Medication Ordered: None - Acknowledgements Anesthesia Type Planned: General Anesthesia Pt an Appropriate Candidate for the Planned Anesthesia: Yes Alternatives and Risks of Anesthesia Discussed w Pt/Guardian: Yes Pt/Guardian Understands and Agrees with Anesthesia Plan: Yes Additional Comments: npo hayfever asthma daily inhalers bmi 25 anxiety depression etoh occ tob 1 ppd pt states she had an ME 20 years ago in [facility] while she was under a lot of stress no cp, vargas par no questions PreAnesthesia Questionnaire HEENT History: Reports: Other (See Below) Other HEENT History: wears glasses, hx of fx nose Cardiovascular History: Reports: Other (See Below) Other Cardiovascular History: says she had an ME 20 years ago- no stenting or trouble since- no follow up. 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 OB/BYN History: C- Section, Ovaraian Cyst Aspiration and tubal ligation Musculoskeletal History: Reports: Other (See Below) Other Musculoskeletal History: has had neck pain the last 2 weeks- states swollen on 1 side and can't turn her head Neurological History: Reports: Concussion Other Neuro History: motion sickness and claustrophobia Psychiatric History: Reports: Anxiety, Depression, Panic Attack, PTSD Endocrine/Metabolic History: Reports: None Hematologic History: Reports: Anemia, Blood Transfusion(s), Iron Deficiency Immunologic History: Reports: None Oncologic (Cancer) History: Reports: Uterine Dermatologic History: Reports: None - Infectious Disease History Infectious Disease History: Reports: Chicken Pox, Measles, Meningitis - Past Surgical History Head Surgeries/Procedures: Reports: None Cardiovascular Surgical History: Reports: None Respiratory Surgical History: Reports: None GI Surgical History: Reports: Cholecystectomy Female Surgical History: Reports: Section, Cystectomy, Hysterectomy, Tubal Ligation Other Female Surgeries/Procedures: repair of bladder 6 weeks after Hysterectomy because of perforation, aspiration of multiple ovarian cysts Endocrine Surgical History: Reports: None Musculoskeletal Surgical History: Reports: None Oncologic Surgical History: Reports: Other (See Below) Other Oncologic Surgeries/Procedures: hysterectomy - SUBSTANCE USE Tobacco Use Status *Q: Current Every Day Tobacco User Tobacco Use Within Last Twelve Months: Cigarettes Recreational Drug Use History: No - HOME MEDS Home Medications: Home Meds Albuterol Sulfate [Proair Hfa] 1 - 2 puff INH Q4H PRN 06/25/20 [History] - CURRENT (IN HOUSE) MEDS Current Meds: Current Medications Lactated Ringer's (Ringers, Lactated) 1,000 mls @ 125 mls/hr IV ASDIRECTED NICK Last Admin: 07/01/20 08:18 Dose: 125 mls/hr Documented by: Sodium Chloride (Sodium Chloride 0.9% 10 Ml Syringe) 10 ml FLUSH ASDIRECTED PRN PRN Reason: Keep Vein Open Sodium Chloride (Sodium Chloride 0.9% 2.5 Ml Syringe) 2.5 ml FLUSH ASDIRECTED PRN PRN Reason: Keep Vein Open Sodium Chloride (Sodium Chloride 0.9% 10 Ml Syringe) 10 ml FLUSH ASDIRECTED PRN PRN Reason: Keep Vein Open Sodium Chloride (Sodium Chloride 0.9% 2.5 Ml Syringe) 2.5 ml FLUSH ASDIRECTED PRN PRN Reason: Keep Vein Open Sodium Chloride (Sodium Chloride 0.9% 10 Ml Sdv) 10 ml IV ASDIRECTED PRN PRN Reason: IV Use Discontinued Medications Lidocaine HCl (Lidocaine 1% 5 Ml Sdv) Confirm Administered Dose 5 ml .ROUTE .STK-MED ONE Stop: 07/01/20 07:06 Propofol (Propofol 200 Mg/20 Ml Sdv) Confirm Administered Dose 200 mg .ROUTE .STK-MED ONE Stop: 07/01/20 07:05
[2020-07-01] MEDS ORDERED: Propofol 200 MG/20 ML SDV ONE ×2 (08:54→09:31)
[2020-07-01] MEDS ORDERED: fentaNYL 100 MCG/2 ML SDV ONE (09:30)
--- NOTE | 2020-07-01 09:57 | PCM.OPNOTE ---
- General Post-Op/Procedure Note Date of Surgery/Procedure: 07/01/20 Operative Procedure(s): Diagnostic EGD and colonoscopy Findings: Normal appearing duodenum esophagus and small intestine. Sigmoid and rectal polyp. Otherwise normal appearing colon and terminal ileum. Pre Op Diagnosis: Bloating, abdominal pain, chronic diarrhea Post-Op Diagnosis: Bloating abdominal pain chronic diarrhea sigmoid colon polyp, rectal polyp [place] [facility] [place]geon: Nalini Saravia Condition: Good
[2020-07-01 10:16] VITALS: BP 104/64; PULSE 71
--- NOTE | 2020-07-01 10:22 | PCM48HPAN ---
Post Anesthesia Note - EVALUATION WITHIN 48HRS OF ANESTHETIC Vital Signs in Normal Range: Yes Patient Participated in Evaluation: Yes Respiratory Function Stable: Yes Airway Patent: Yes Cardiovascular Function Stable: Yes Hydration Status Stable: Yes Pain Control Satisfactory: Yes Nausea and Vomiting Control Satisfactory: Yes Mental Status Recovered: Yes Vital Signs: Last Vital Signs Temp 97.2 F 07/01/20 10:02 Pulse 71 07/01/20 10:02 Resp 14 07/01/20 10:02 BP 104/64 07/01/20 10:02 Pulse Ox 99 07/01/20 10:02
--- NOTE | 2020-07-01 10:22 | PCM.POSTAN ---
POST ANESTHESIA ASSESSMENT - MENTAL STATUS Mental Status: Alert (no anesthetic problems), Oriented - VITAL SIGNS Vital Signs: Last Vital Signs Temp 97.2 F 07/01/20 10:02 Pulse 71 07/01/20 10:02 Resp 14 07/01/20 10:02 BP 104/64 07/01/20 10:02 Pulse Ox 99 07/01/20 10:02 - RESPIRATORY Respiratory Status: Respiratory Rate WNL, Airway Patent, O2 Saturation Stable - CARDIOVASCULAR CV Status: Pulse Rate WNL, Blood Pressure Stable - GASTROINTESTINAL GI Status: No Symptoms - POST OP HYDRATION Hydration Status: Adequate & Stable
--- NOTE | 2020-07-02 19:12 | OR ---
SURGEON: NALINI SARAVIA MD DATE OF PROCEDURE: 07/01/2020 PREOPERATIVE DIAGNOSES: 1. Chronic diarrhea. 2. Bloating. 3. Abdominal pain. 4. Positive fecal occult blood test. POSTOPERATIVE DIAGNOSES: 1. Rectal polyp. 2. Sigmoid colon polyp 3. IBS-Diarrhea type PROCEDURE PERFORMED: Diagnostic esophagogastroduodenoscopy and colonoscopy. PRIMARY SURGEON: Endoscopist: Nalini Saravia MD. ANESTHESIA: MAC. INSTRUMENT USED: Olympus endoscope and colonoscope. EXTENT OF EXAM: To the second portion duodenum, to the cecum. PREPARATION: Good. LIMITATIONS: None. INDICATIONS: The patient is a 54-year-old female who presented to her primary care provider's office with complaints of chronic diarrhea, abdominal pain, and bloating for the past 2 years. 2 years ago, she had a laparoscopic cholecystectomy for biliary dyskinesia. The patient underwent testing at her primary care provider's office. She was found to have a mild leukocytosis. She had stool studies performed. Celiac testing was negative. Fecal occult blood test was positive. The patient presented to my clinic. We discussed her symptomology. I ordered a CT scan of the abdomen and pelvis. This appeared normal. The patient and I discussed the need for diagnostic EGD and colonoscopy. I explained the procedures, expected perioperative course, and the risks. She verbalized understanding and wishes to proceed. PROCEDURE IN DETAIL: The patient was brought into the endoscopy suite and placed in the left lateral decubitus position. A time-out was completed verifying the patient's name, age, date of , allergies, and procedure to be performed. Monitored anesthesia care was induced. Continuous oxygen was provided via nasal cannula, and a bite block was placed in the patient's mouth. After adequate sedation was achieved, a well-lubricated endoscope was placed in the patient's mouth and advanced under direct visualization to the second portion of duodenum. This appeared normal, and a photograph taken. The scope was then fully withdrawn while examining the color, texture, anatomy, and integrity of mucosa of the upper GI tract. The duodenum appeared normal. The duodenal bulb showed no signs of atrophy or ulceration. Biopsies were taken of this and sent to Pathology. The scope was brought into the stomach, and a photograph taken of the pylorus and GE junction. Both appeared grossly normal. There were no signs of gross inflammation or ulceration within the gastric lining. Biopsies were taken of the gastric antrum, body, and fundus and sent for histologic review and H. pylori testing. The scope was then brought into the distal esophagus. A photograph was taken of the Z-line, which appeared normal. A biopsy was taken 1 cm above this and sent to Pathology, labeled as esophagus. The remainder of the esophageal mucosa appeared normal. The scope was removed, and this portion of procedure terminated. A digital rectal exam was performed. This exam was within normal limits. A well-lubricated colonoscope was inserted into the rectum and advanced under direct visualization to the level of the cecum. The cecum was identified by both visual and anatomic landmarks. A photograph was taken of the cecal cap as well as with the scope retroflexed within the cecum. The scope was then fully withdrawn while examining the color, texture, anatomy, and integrity of the mucosa from the cecum to the anal canal. The patient had normal-appearing colonic mucosa. Her terminal ileum appeared normal. Random biopsies were taken of the cecum, ascending colon, transverse colon, descending colon, and sigmoid colon and sent to Pathology for histologic review. In the sigmoid colon and rectum, the patient had small sessile polyps. These were removed in piecemeal fashion and sent to Pathology, labeled as sigmoid and rectal polyp. The scope was then retroflexed within the rectum to allow visualization of the anal canal opening. This appeared normal, and a photograph taken. The scope was then straightened out and fully withdrawn. The cecum to anus time was 11 minutes. The patient tolerated both procedures well and was transferred to the PACU in stable condition. ENDOSCOPIC DIAGNOSES: 1. IBS-Diarrhea 2. Rectal polyp. 3. Sigmoid colon polyp. RECOMMENDATIONS: I gave the patient dicyclomine as I am concerned that she may have irritable bowel syndrome, diarrhea type. The patient did have good resolution of her diarrhea with the addition of cholestyramine. I will visit with the patient in 2 weeks regarding her biopsy results as well as any further steps in treatment. BONNIE / DENISSE /[id number] NELSON
== END 2020-07-01 10:19 | disposition home or self-care (01) ==
LOC: MW.SDS 07:36
PROVIDERS: ATTEND Surgery
DX: K63.5 Polyp of colon (principal); K62.1 Rectal polyp; K58.0 Irritable bowel syndrome with diarrhea; K29.50 Unspecified chronic gastritis without bleeding; K20.90 Esophagitis, unspecified without bleeding; J45.909 Unspecified asthma, uncomplicated; I25.2 Old myocardial infarction; F17.210 Nicotine dependence, cigarettes, uncomplicated; D50.9 Iron deficiency anemia, unspecified; Z90.49 Acquired absence of other specified parts of digestive tract; Z88.8 Allergy status to other drugs, medicaments and biological substances; Z79.899 Other long term (current) drug therapy; Z98.890 Other specified postprocedural states
CPT/HCPCS: 00813; 88305; 88312; J2704; J3010; J7120

== ENCOUNTER 2024-06-12 15:48 | Emergency (ER) | payer MEDICAID ==
[2024-06-12 16:07] LABS: BASOPHILS ABSOLUTE AUTO 0.03 K/uL (0.00-0.20); BASOPHILS PERCENT AUTO 0.3 % (0.0-1.0); EOSINOPHILS ABSOLUTE AUTO 0.09 K/uL (0.00-0.45); EOSINOPHILS PERCENT AUTO 0.9 % (0.0-6.0); HEMATOCRIT 43.9 % (37.0-47.0); HEMOGLOBIN 14.8 g/dL (12.0-16.0); IMMATURE GRAN ABSOLUTE AUTO 0.03 K/uL (0.00-0.05); IMMATURE GRAN PERCENT AUTO 0.3 % (0.0-0.4); LYMPHOCYTES ABSOLUTE AUTO 2.71 K/uL (1.00-4.80); LYMPHOCYTES PERCENT AUTO 27.2 % (24.0-44.0); MEAN CORPUSCULAR HEMOGLOBIN 30.7 pg (28.0-32.0); MEAN CORPUSCULAR HGB CONC 33.7 g/dL (32.0-36.0); MEAN CORPUSCULAR VOLUME 91.1 fL (83.0-99.0); MONOCYTES ABSOLUTE AUTO 0.54 K/uL (0.00-0.80); MONOCYTES PERCENT AUTO 5.4 % (0.0-8.0); NEUTROPHILS ABSOLUTE AUTO 6.58 K/uL (1.80-7.70); NEUTROPHILS PERCENT AUTO 65.9 % (41.0-71.0); PLATELET COUNT,PLT 253 K/uL (150-400); RED BLOOD CELL COUNT 4.82 M/uL (4.10-5.30); WHITE BLOOD CELL COUNT,WBC 9.98 K/uL (3.9-11.3)
[2024-06-12 16:25] LABS: INR 0.96 (0.86-1.11)
[2024-06-12] MEDS: Sodium Chloride 0.9% 1,000 ML IV ONE (16:35)
[2024-06-12 16:40] LABS: A/G RATIO 1.5 (0.9-1.6); ALANINE AMINOTRANSFERASE,ALT 27 IU/L (14-63); ALBUMIN 4.5 g/dL (3.4-5.0); ALKALINE PHOSPHATASE 120 U/L (46-116); ASPARTATE AMNIOTRANSFERASE,AST 17 IU/L (15-37); BILIRUBIN TOTAL 0.6 mg/dL (0.2-1.0); BLOOD UREA NITROGEN,BUN 14 mg/dL (7.0-18.0); CALCIUM 8.7 mg/dL (8.5-10.1); CARBON DIOXIDE,CO2 26.4 mmol/L (21.0-32.0); CHLORIDE,CL 100 mmol/L (98-107); CREATININE 0.8 mg/dL (0.6-1.0); GLUCOSE RANDOM 115 mg/dL (74-106); LIPASE 92 U/L (16-77); MAGNESIUM 2.1 mg/dL (1.8-2.4); POTASSIUM,K 3.4 mmol/L (3.5-5.1); PRO B-TYPE NATRIUR PEPT,BNPPRO 56 pg/mL (0-125); PROTEIN TOTAL,TP 7.5 g/dL (6.4-8.2); SODIUM,NA 136 mmol/L (136-145); TSH ULTRASENSITIVE 1.04 uIU/mL (0.36-3.74)
[2024-06-12 16:43] LABS: ESTIMATED GFR 86 mL/min (>60)
[2024-06-12] MEDS: Ketorolac 30 MG/ML SDV IVPUSH ONE (17:23)
[2024-06-12 18:51] VITALS: BP 116/73; PULSE 83
== END 2024-06-12 18:51 | disposition home or self-care (01) ==
LOC: MW.ED 15:48
DX: R07.2 Precordial pain (principal); Z75.8 Other problems related to medical facilities and other health care; Z88.5 Allergy status to narcotic agent; Z88.8 Allergy status to other drugs, medicaments and biological substances
CPT/HCPCS: 36415; 71045; 80053; 83690; 83735; 83880; 84443; 84484; 85025; 85379; 85610; 93005; 96361; 96374; 99285; J1885; J7030; 93010; 99283